=== PATIENT | female | born 1945 | race Caucasian/White ===

== ENCOUNTER 2016-08-01 11:10 | Emergency (ER) | payer MEDICARE, BC ==
[~2016-08-01] VITALS: Ht 162.6 cm; Wt 49.9 kg
--- NOTE | 2016-08-01 11:42 | PHYS DOC ---
Past Medical History Past Medical History: GERD, High Cholesterol, Hypothyroid, Migraines Additional Past Medical Histor: thyroid disease Past Surgical History: Tonsillectomy Additional Past Surgical Histo: thyroidectomy Alcohol Use: None Drug Use: None Adult General Chief Complaint Chief Complaint: OTHER COMPLAINTS [facility] HPI This patient is a pleasant 71-year-old female with a history of esophageal foreign body and esophageal stricture requiring suction dilation multiple times over the last 20 years who presents with esophageal foreign body after eating chicken and salad last night. About 9 PM patient began expressing foreign body sensation about the sternal notch and is continued to have same foreign body sensation despite trying to eat or drink to push the foreign body down. She has had some vomiting of the food she has eaten the foreign body still remains. She attempted to drink water and eventually has to spit it all back up she is not able to tolerate her saliva and she keeps spitting every 5-10 minutes. She denies any change in voice denies any problems with choking or coughing. Patient denies any fever abdominal pain chest pain shortness breath or other complaints. Her last esophageal dilation was greater than 15 years ago and she has no relationship with a GI doctor at this time. Review of Systems Review of Systems Constitutional: Denies fever or chills [] Eyes: Denies change in visual acuity, redness, or eye pain [] HENT: Denies nasal congestion or sore throat [] Respiratory: Denies cough or shortness of breath [] Cardiovascular: No additional information not addressed in HPI [] GI: Denies abdominal pain but has vomiting without nausea or diarrhea. : Denies dysuria or hematuria [] Musculoskeletal: Denies back pain or joint pain [] Integument: Denies rash or skin lesions [] Neurologic: Denies headache, focal weakness or sensory changes [] Endocrine: Denies polyuria or polydipsia [] Current Medications Current Medications Current Medications Medications (Trade) Dose Ordered Sig/Ahmet Start Time Stop Time Status Last Admin Dose Admin Glucagon (Glucagen) 1 mg 1X ONCE 08/01/16 11:45 08/01/16 11:46 DC 08/01/16 12:17 1 MG Sodium Chloride (Normal Saline Flush) 10 ml QSHIFT PRN 08/01/16 11:45 Allergies Allergies Allergies Coded Allergies Type Severity Reaction Last Updated Verified NSAIDS (Non-Steroidal Anti-Inflamma Allergy Unknown "they upset my GERD" 01/21 Yes Physical Exam Physical Exam Constitutional: Well developed, well nourished, no acute distress, non-toxic appearance. [] HENT: Normocephalic, atraumatic, bilateral external ears normal, oropharynx moist, no oral exudates, nose normal. [] Neck: Normal range of motion, no tenderness, supple, no stridor. [] Cardiovascular:Heart rate regular rhythm, no murmur [] Lungs & Thorax: Bilateral breath sounds clear to auscultation [] Abdomen: Bowel sounds normal, soft, no tenderness, no masses, no pulsatile masses. [] Skin: Warm, dry, no erythema, no rash. [] Neurologic: Alert and oriented X 3, normal voice no cough patient actually spitting up to the spittoon Psychologic: Affect normal, judgement normal, mood normal. [] Current Patient Data Vital Signs Vital Signs Date Time Temp Pulse Resp B/P (MAP) Pulse Ox O2 Delivery O2 Flow Rate FiO2 08/01/16 11:15 98.3 75 18 153/70 (97) 98 Room Air 98.3 EKG EKG [] Radiology/Procedures Radiology/Procedures IMAGING REPORT Signed PATIENT: CARLOS MANUEL DOMINGO ACCOUNT: [id number] : 1945 LOCATION: ER AGE: 71 SEX: F EXAM STATUS: PRE ER ORD. PHYSICIAN: CHUNG GONSALVES MD REASON: esophageal foreign body PROCEDURE: CHEST PA & LATERAL Indication: History of thyroidectomy. Patient has question postoperative foreign body. Time of exam 11:47 AM 2 views of the chest were obtained. There is mild right convexity thoracic scoliotic curvature. The lungs are clear. No effusion or pneumothorax is seen. No definite radiopaque foreign body is identified. Impression: No acute feature detected. DICTATED and SIGNED BY: JOHN ZAZUETA MD DATE: 08/01/16 1202 CC: CHUNG GONSALVES MD; JONATHAN ENG MD ~ [] IMAGING REPORT Signed PATIENT: CARLOS MANUEL DOMINGO ACCOUNT: [id number] : 1945 LOCATION: ER AGE: 71 SEX: F EXAM STATUS: PRE ER ORD. PHYSICIAN: CHUNG GONSALVES MD REASON: esophageal foreign body PROCEDURE: NECK SOFT TISSUE Indication: Esophageal foreign body. Time of exam 11:49 AM There are surgical clips in the neck from prior thyroidectomy. No other foreign bodies are seen. No unexpected foreign object is detected. There is cervical spondylosis noted. Prevertebral tissues are normal. Impression: No definite unexpected radiopaque foreign object is identified. DICTATED and SIGNED BY: JOHN ZAZUETA MD DATE: 08/01/16 1204 CC: CHUNG GONSALVES MD; JONATHAN ENG MD ~ Course & Med Decision Making Course & Med Decision Making Pertinent Labs and Imaging studies reviewed. (See chart for details) [] With esophageal foreign body still present likely partially obstructed secondary to continued need to spit and vomiting after eating. Patient will have chest x-ray and soft tissue lateral neck completed as well as a dose of glucagon deceiver again ate in the remove this foreign body. If not GI OB consult the patient will be referred to GI for an emergent soft foreign body removal via EGD. Patient's is stable she is mildly hypertensive on initial evaluation Discussed case with GI on-call doctor DAVIS who agreed with disposition and happy see patient and do an EGD on him later today I was asked to disposition to the GI suite for that purpose. Patient has been explained the course of action and plan we'll follow up immediately upon being discharged from this facility in EEG suite. She may have to wait several hours but he will do it later this afternoon. She is stable. It is unfortunate that glucagon did not work to help her symptoms given negative chest x-ray and soft tissue lateral films I believe patient is safe for disposition. Impression. Esophageal foreign body, secondary to esophageal strictures. Disposition: Referred to GI doctor DAVIS for endoscopy today. Dragon Disclaimer Dragon Disclaimer This electronic medical record was generated, in whole or in part, using a voice recognition dictation system. Departure Departure Referrals: JONATHAN ENG MD (PCP) CHUNG GONSALVES MD August 01, 2016 11:42
[2016-08-01] MEDS ORDERED: 0.9 % SODIUM CHLORIDE 10 ML DISP.SYRIN. IV PRN (11:45)
[2016-08-01] MEDS ORDERED: IV NORMAL SALINE 1000ML BAG 1,000 ML IV SCH (11:45)
[2016-08-01] MEDS ORDERED: GLUCAGON,HUMAN RECOMBINANT 1 MG/ML VIAL. IV ONE (11:45)
--- NOTE | 2016-08-01 12:06 | RAD ---
Indication: History of thyroidectomy. Patient has question postoperative foreign body. Time of exam 11:47 AM 2 views of the chest were obtained. There is mild right convexity thoracic scoliotic curvature. The lungs are clear. No effusion or pneumothorax is seen. No definite radiopaque foreign body is identified. Impression: No acute feature detected.
--- NOTE | 2016-08-01 12:07 | RAD ---
Indication: Esophageal foreign body. Time of exam 11:49 AM There are surgical clips in the neck from prior thyroidectomy. No other foreign bodies are seen. No unexpected foreign object is detected. There is cervical spondylosis noted. Prevertebral tissues are normal. Impression: No definite unexpected radiopaque foreign object is identified.
[2016-08-01 12:25] VITALS: BP 151/63
[2016-08-01] MEDS ORDERED: CODE1CAP19 PO (13:29)
[2016-08-01] MEDS ORDERED: LEVO25TA55 PO (13:29)
[2016-08-01] MEDS ORDERED: CHOL100013 PO (13:29)
[2016-08-01] MEDS ORDERED: PROP80CA3 PO (13:29)
== END 2016-08-01 12:48 | disposition home or self-care (01) ==
LOC: ER 11:10
DX: T18.128A Food in esophagus causing other injury, initial encounter (principal); K22.2 Esophageal obstruction; K21.9 Gastro-esophageal reflux disease without esophagitis; E78.00 Pure hypercholesterolemia, unspecified; E89.0 Postprocedural hypothyroidism; G43.909 Migraine, unspecified, not intractable, without status migrainosus; Z88.6 Allergy status to analgesic agent; X58.XXXA Exposure to other specified factors, initial encounter; Y93.89 Activity, other specified; Y92.89 Other specified places as the place of occurrence of the external cause; Y99.8 Other external cause status
CPT/HCPCS: 70360; 71020; 96361; 96374; 99284; J1610; J7030

== ENCOUNTER → 2016-08-01 | Day surgery (SDC) | payer MEDICARE, BC ==
[~2016-08-01] MED LIST: CHOL100013 PO; CODE1CAP19 PO; LEVO25TA55 PO; LIDOCAINE 2% PF Vial for OR 5 ML VIAL. ONE; PROP80CA3 PO; PROPOFOL 20 ML IV ONE
--- NOTE | 2016-08-01 13:36 | PDOC2 ---
GI CONSULT Reason For Consult: Food bolus HPI: HPI: 71 y/o female who's we have recently seen at [facility]; in fact, he was discharged yesterday. PMH is significant for esophageal stricture w/ dilation years ago. Since then has very rare issues w/ dysphagia, maybe once every 3 years, with solid foods getting stuck for ~15 minutes before passing. On this occasion was eating chicken last night around 9:00 p.m. and a piece has been stuck in her throat since then. Unable to drink or tolerate own secretions although symptoms briefly improved w/ glucagon in the ER. [place] in oropharynx. H/o dyspepsia when takes steroids; for this reason takes Pepcid of Dexilant PRN. No reflux/heartburn, abd pain, weight loss, diarrhea, constipation, hematochezia, melena. No NSAIDs. Last EGD and colonoscopy ~10 years ago, recalls both as normal. PMH: PMH: esophageal stricture w/ dilation, hypothyroidism, migraines (on propranolol, Fioricet), thyroidectomy for nodules FH: Family History: No pertinent hx (denies GI cancers) Social History: Smoke: Quit ALCOHOL: rare Drugs: None ROS: GEN: Denies fevers, chills, sweats HEENT: Denies blurred vision, sore throat CV: Denies chest pain RESP: Denies shortness of air, cough GI: Per HPI : Denies hematuria, dysuria ENDO: Denies weight changes NEURO: Denies confusion, dizziness MSK: Denies weakness, joint pain/swelling SKIN: Denies jaundice, pruritus Vitals: Vitals: Vital Signs Date Time Temp Pulse Resp B/P (MAP) Pulse Ox O2 Delivery O2 Flow Rate FiO2 08/01/16 13:23 98.1 84 20 98 98.1 Labs: Labs: - Allergies: Coded Allergies: NSAIDS (Non-Steroidal Anti-Inflamma (Verified Allergy, Intermediate, " they upset my GERD", 08/01/16) Medications: Please see EMR. Imaging: Imaging: Neck Soft Tissue Impression: No definite unexpected radiopaque foreign object is identified. CXR Impression: No acute feature detected. PE: GEN: NAD HEENT: Atraumatic, PERRL LUNGS: CTAB anteriorly HEART: RRR ABD: NABS, S/ND/NT EXTREMITY: No edema SKIN: No rashes, no jaundice NEURO/PSYCH: A & O 3 A/P: A/P: Food bolus -onset last evening while eating chicken -unable to maintain secretions H/o esophageal stricture/dilation Dyspepsia -when takes steroids, uses Pepcid or Dexilant PRN CRC screen -says colonoscopy <10 years ago -- EGD w/ disimpaction this afternoon. LION KAPADIA August 01, 2016 13:36
[2016-08-01 16:26] VITALS: BP 139/71
== END | disposition home or self-care (01) ==
LOC: SURG 12:58
PROVIDERS: ATTEND Internal Medicine Gastroenterology
DX: K22.2 Esophageal obstruction (principal); T18.128A Food in esophagus causing other injury, initial encounter
CPT/HCPCS: 43247; J2704

== ENCOUNTER → 2016-10-06 | Day surgery (SDC) | payer MEDICARE, BC ==
[~2016-10-06] MED LIST changes: +DEXL60CA2 PO; +HYDROmorphone 2 MG/ML VIAL IV PRN; +IV RINGERS,LACTATED 1000ML 1,000 ML IV SCH; +LEVO50TA5 PO; +LIDOCAINE 1% 1 ML SYRINGE. ID PRN; +MORPHINE SULFATE 2 MG/ML DISP.SYRIN. IV PRN; +ONDANSETRON PF 4 MG/2 ML VIAL. IV PRN; +PROCHLORPERAZINE 10 MG/2 ML VIAL. IV PRN; +fentaNYL PF VIAL 100 MCG/2 ML VIAL IV PRN
--- NOTE | 2016-10-06 09:54 | PDOC2 ---
CONSULT Date of Consult Date of Consult DATE: 10/06/16 TIME: 09:50 Reason for Consult Reason for Consult: dysphagia History of Present Illness Reason for Visit: 71 year old patient seen with above. She has solid food dysphagia in the substernal location. Heartburn is also noted. Dexilant is taken as needed. Risk factors for reflux are negative for alcohol, nicotine, and caffeine. Weight is stable. With the continued issues, she requests further evaluation. Past Medical History Cardiovascular: HTN Past Surgical History Past Surgical History: Tonsillectomy, Other (thyroid surgery) Family History Family History: Stroke Social History No ALCOHOL: rare Drugs: None Current Medications Current Medications Current Medications Ondansetron HCl (Zofran) 4 mg PRN Q6HRS PRN IV NAUSEA/VOMITING; Start 10/06/16 at 07:00; Stop 10/07/16 at 06:59 Fentanyl Citrate (Fentanyl 2ml Vial) 25 mcg PRN Q5MIN PRN IV MILD PAIN; Start 10/06/16 at 07:00; Stop 10/07/16 at 06:59 Fentanyl Citrate (Fentanyl 2ml Vial) 50 mcg PRN Q5MIN PRN IV MODERATE PAIN; Start 10/06/16 at 07:00; Stop 10/07/16 at 06:59 Morphine Sulfate 1 mg PRN Q10MIN PRN IV SEVERE PAIN; Start 10/06/16 at 07:00; Stop 10/07/16 at 06:59 Ringer's Solution 1,000 ml @ 30 mls/hr Q24H IV Last administered on 10/06/16t 09:09; Start 10/06/16 at 07:00; Stop 10/06/16 at 18:59 Lidocaine HCl 2 ml PRN 1X PRN ID PRIOR TO IV START; Start 10/06/16 at 07:00; Stop 10/07/16 at 06:59 Hydromorphone HCl (Dilaudid) 0.5 mg PRN Q10MIN PRN IV SEV PAIN, Second choice; Start 10/06/16 at 07:00; Stop 10/07/16 at 06:59 Prochlorperazine Edisylate (Compazine) 5 mg PACU PRN PRN IV NAUSEA, MRX1; Start 10/06/16 at 07:00; Stop 10/07/16 at 06:59 Propofol 20 ml @ As Directed STK-MED ONCE IV ; Start 10/06/16 at 09:43; Stop at 09:44; Status DC Lidocaine HCl (Lidocaine Pf 2% Vial) 5 ml STK-MED ONCE .ROUTE ; Start 10/06/16 at 09:43; Stop 10/06/16 at 09:44; Status DC Active Scripts Active Reported Dexilant (Dexlansoprazole) 60 Mg [place].mp 60 Mg PO PRN PRN Levothyroxine Sodium 50 Mcg Tablet 50 Mcg PO DAILYAC Vitamin D (Cholecalciferol (Vitamin D3)) 1,000 Unit Capsule 1 Cap PO DAILY Fiorinal With Codeine #3 Cap (Codeine/Butalbital/Asa/Caffein) 1 Each Capsule 1 Each PO DAILY08 Propranolol Hcl 80 Mg Cap.sa.24h 1 Cap PO HS Allergies Allergies: Coded Allergies: NSAIDS (Non-Steroidal Anti-Inflamma (Verified Allergy, Intermediate, " they upset my GERD", 10/06/16) Physical Exam General: Alert, Oriented X3 HEENT: Atraumatic Lungs: Clear to auscultation Heart: Regular rate, Normal S1, Normal S2 Abdomen: Normal bowel sounds, Soft, No tenderness Vitals VITALS Vital Signs Date Time Temp Pulse Resp B/P (MAP) Pulse Ox O2 Delivery O2 Flow Rate FiO2 10/06/16 08:54 97.4 64 20 92 97.4 Assessment/Plan Assessment/Plan 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 Differential includes: peptic stricture, Queen's, malignancy, and/or achalasia. R/b discussed with patient who is willing to proceed wtih egd and possible dilation. RIYA CANNON MD Oct 06, 2016 09:54
[2016-10-06 10:29] VITALS: BP 154/64
== END | disposition home or self-care (01) ==
LOC: ENDOS 08:23
PROVIDERS: ATTEND Internal Medicine Gastroenterology
DX: K22.2 Esophageal obstruction (principal); K29.70 Gastritis, unspecified, without bleeding; F17.200 Nicotine dependence, unspecified, uncomplicated; E78.00 Pure hypercholesterolemia, unspecified; I10 Essential (primary) hypertension; E03.9 Hypothyroidism, unspecified; Z86.39 Personal history of other endocrine, nutritional and metabolic disease; Z88.8 Allergy status to other drugs, medicaments and biological substances
CPT/HCPCS: 43235; 43450; J2001; J2704

== ENCOUNTER → 2018-04-24 | Day surgery (SDC) | payer MEDICARE, BC ==
[~2018-04-24] MED LIST changes: +DILT180C2 PO; +DULO30CA2 PO; +FAMO20TA5 PO; +LEVO25TA4 PO; -LIDOCAINE 1% 1 ML SYRINGE. ID PRN; +LIDOCAINE 1% PF 2 ML VIAL. ID PRN; -LIDOCAINE 2% PF Vial for OR 5 ML VIAL. ONE; -MORPHINE SULFATE 2 MG/ML DISP.SYRIN. IV PRN; +MORPHINE SULFATE 4 MG/ML VIAL. IV PRN; +POTA10TA6 PO; -PROPOFOL 20 ML IV ONE; +PROPOFOL 40 ML IV ONE
[2018-04-24 08:39] VITALS: BP 138/63
--- NOTE | 2018-04-25 17:11 | PATHOLOGY ---
[facility] Accession Number: [id number] . 01 Material submitted: . GASTRIC ULCER BIOPSY . 01 Clinical history: . Anemia . 02 Diagnosis: Gastric biopsies, gastric ulcer: - Consistent with mild reactive gastropathy. . (JPM:mml; 04/25/2018) [facility]/04/25/2018 . 02 Comment: Sections of the gastric ulcer biopsy reveal segments of gastric antral mucosa showing focal congestion, mild edema of lamina propria, focal mild foveolar hyperplasia, and focal mild chronic inflammation. A properly-controlled immunoperoxidase stain for Helicobacter is negative for Helicobacter organisms. The findings are consistent with a mild reactive gastropathy. There is no evidence of malignancy. . Special stain: Immunoperoxidase stain for Helicobacter. . (JPM:mml; 04/25/2018) . 02 Electronically signed: . Gonsalo Mancilla MD, Pathologist NPI- [id number] . 01 Gross description: . Received in formalin labeled "Cecy Schaefer, gastric ulcer BX," are 3 segments of serrano soft tissue measuring 0.4 x 0.4 x 0.1 cm in aggregate dimensions and ranging from 0.2 to 0.3 cm in maximum dimension. The specimen is submitted entirely in cassette A1. (TSD; 04/24/2018) TOB/TOB . 02 Pathologist provided ICD-10: K31.9 . 02 CPT . 663458, G99383 Specimen Comment: A courtesy copy of this report has been sent to Specimen Comment: [phone], . Specimen Comment: Report sent to / DR ENG Specimen Comment: A duplicate report has been generated due to demographic updates. Performed at: [address] [address] [facility] [address], [place], [place] [id number] MD Jsoe Rafael Galo MD Phone: [phone] Performed at: [address] [id number] MD Gonsalo Mancilla MD Phone: [phone]
== END | disposition home or self-care (01) ==
LOC: ENDOS 06:47
PROVIDERS: ATTEND Internal Medicine Gastroenterology
DX: K57.30 Diverticulosis of large intestine without perforation or abscess without bleeding (principal); K64.0 First degree hemorrhoids; K25.9 Gastric ulcer, unspecified as acute or chronic, without hemorrhage or perforation; D50.0 Iron deficiency anemia secondary to blood loss (chronic); I10 Essential (primary) hypertension; E78.5 Hyperlipidemia, unspecified; E03.9 Hypothyroidism, unspecified; K21.9 Gastro-esophageal reflux disease without esophagitis; Z82.3 Family history of stroke; Z82.49 Family history of ischemic heart disease and other diseases of the circulatory system; Z83.3 Family history of diabetes mellitus; Z87.891 Personal history of nicotine dependence; Z79.899 Other long term (current) drug therapy; Z98.890 Other specified postprocedural states; Z88.8 Allergy status to other drugs, medicaments and biological substances
CPT/HCPCS: 43239; 45378; 88305; 88342; J2704

== ENCOUNTER → 2018-06-26 | Day surgery (SDC) | payer MEDICARE, BC ==
[~2018-06-26] MED LIST changes: +IBUP200T58 PO; +LIDOCAINE 2% PF 5 ML VIAL. ONE; +MORPHINE SULFATE 2 MG/ML VIAL. IV PRN; -MORPHINE SULFATE 4 MG/ML VIAL. IV PRN; +PROPOFOL 20 ML IV ONE; -PROPOFOL 40 ML IV ONE
[2018-06-26 09:26] VITALS: BP 181/87
== END | disposition home or self-care (01) ==
LOC: SURG 07:51
PROVIDERS: ATTEND Internal Medicine Gastroenterology
DX: K22.2 Esophageal obstruction (principal); K29.50 Unspecified chronic gastritis without bleeding; E78.5 Hyperlipidemia, unspecified; I10 Essential (primary) hypertension; K21.9 Gastro-esophageal reflux disease without esophagitis; E05.90 Thyrotoxicosis, unspecified without thyrotoxic crisis or storm; D64.9 Anemia, unspecified; Z82.3 Family history of stroke; Z83.3 Family history of diabetes mellitus; Z82.49 Family history of ischemic heart disease and other diseases of the circulatory system; Z87.891 Personal history of nicotine dependence; Z79.899 Other long term (current) drug therapy; Z98.890 Other specified postprocedural states
CPT/HCPCS: 43235; 43450; J2001; J2704

== ENCOUNTER → 2018-11-21 | Outpatient (CLI) | payer MEDICARE, BC ==
[2018-06-26 09:26] VITALS: BP 181/87
[~2018-11-21] MED LIST changes: -HYDROmorphone 2 MG/ML VIAL IV PRN; -IV RINGERS,LACTATED 1000ML 1,000 ML IV SCH; -LIDOCAINE 1% PF 2 ML VIAL. ID PRN; -LIDOCAINE 2% PF 5 ML VIAL. ONE; -MORPHINE SULFATE 2 MG/ML VIAL. IV PRN; -ONDANSETRON PF 4 MG/2 ML VIAL. IV PRN; -PROCHLORPERAZINE 10 MG/2 ML VIAL. IV PRN; -PROPOFOL 20 ML IV ONE; -fentaNYL PF VIAL 100 MCG/2 ML VIAL IV PRN
--- NOTE | 2018-11-21 16:20 | KCIC ---
THORACIC SPINE 3V, LUMBAR SPINE 2-3V 11/21/2018 12:00 AM Indication: Low back pain. Thoracic pain for 2 to 3 weeks COMPARISON: None available TECHNIQUE: 3 views of the lumbar spine are provided. 3 views of the thoracic spine are provided. Findings: There is S-shaped scoliosis of the thoracolumbar spine with apex dextroconvex curvature at T9-T10 and apex levocurvature at L2-L3. There is no acute fracture identified. There is rotoscoliosis of the lumbar spine. Advanced disc height loss at L3-L4 asymmetric to the right and L4-L5 asymmetric to the left. I degenerative changes with endplate remodeling is noted at L3-L4 and L4-L5. Mild disc height loss noted at L1-L2 and L2-L3. Osseous neural foraminal stenosis is identified at L3-L4 and L4-L5. Nonobstructive bowel gas pattern. Visualized portions of the sacrum appear intact. Impression: S-shaped rotoscoliosis of the thoracolumbar spine with associated moderate to advanced degenerative changes of the lumbar spine. Electronically signed by: Carolina Ortiz MD (11/21/2018 4:17 PM) [id number]
--- NOTE | 2018-11-21 16:25 | KCIC ---
Examination: 2 views of the left hip HISTORY: History of left hip pain COMPARISON: None available FINDINGS: Left femoral head is within the acetabula. Moderate joint space loss identified in the left joint likely degenerative changes. IMPRESSION: Moderate degenerative changes left hip joint. Electronically signed by: Micha Lei MD (11/21/2018 4:22 PM) [place] [id number]
== END | disposition home or self-care (01) ==
LOC: KCIC 15:06
PROVIDERS: ATTEND Family Medicine
DX: M25.552 Pain in left hip (principal); M41.85 Other forms of scoliosis, thoracolumbar region; M16.12 Unilateral primary osteoarthritis, left hip; M48.061 Spinal stenosis, lumbar region without neurogenic claudication; M79.605 Pain in left leg; M54.10 Radiculopathy, site unspecified; M54.5 Low back pain
CPT/HCPCS: 72072; 72100; 73502

== ENCOUNTER → 2018-12-20 | Outpatient (CLI) | payer MEDICARE, BC ==
[2018-06-26 09:26] VITALS: BP 181/87
[~2018-12-20] MED LIST changes: +DILT60TA3 PO; +TRAM50TA PO
--- NOTE | 2018-12-20 15:22 | KCIC ---
MRI Lumbar Spine without contrast History: Radicular low back pain into the hips and legs Technique: Multiplanar, multi sequential noncontrast MR imaging was performed of the lumbar spine. Comparison: None Findings: Lumbar vertebral body stature is maintained. There is moderate to severe levoscoliosis with rotary component, centered near L3. There is mild left lateral subluxation L3 relative to L4 and L4 relative to L5, mild right lateral subluxation of L1 relative to L2. There is very minimal posterior subluxation L2 relative to L3 and L3 relative to L4. There is variable advanced degenerative disc disease L1-L2 through L4-5 and to a somewhat lesser degree at L5-S1. Conus terminates near T12-L1. There is trace variable endplate edema at L1-2 and L5-S1 likely reactive/degenerative in etiology. T10-11: Small cystic focus in the left neural foramen is most likely a nerve root sleeve cyst. Spinal canal and neural foramina are adequate. T11-12: There is mild buckling of the ligamentum flavum. Spinal canal and neural foramina are adequate. T12-L1: Spinal canal and neural foramina are adequate. L1-L2: There is bulge/broad protrusion more eccentric to the right lateral recess about 3 mm AP, mild indentation upon the ventral thecal sac in the right lateral recess with minimal narrowing of the far right lateral recess. Left neural foramen is adequate. There is moderate narrowing of the right neural foramen from posteriorly by facet. L2-L3: There is minimal disc osteophyte complex. Spinal canal is adequate. Neural foramina are adequate. Facet degenerative change and disc osteophyte complex contributes to moderate narrowing of the right neural foramen. L3-L4: There is disc osteophyte complex slightly indenting the ventral thecal sac. There is some deformity of the thecal sac due to the scoliotic curvature. There is mild bilateral facet degenerative change greater on the left. Left neural foramen is adequate. There is [id number] narrowing of the right neural foramen. There is mild narrowing of the far right lateral recess at the intervertebral disc space level, greater degree of mild to moderate narrowing of the left lateral recess disc below the intervertebral disc space level. L4-L5: There is [id number] buckling of the ligamentum flavum and mild facet hypertrophic change. There is minimal disc osteophyte complex greater left lateral recess. There is moderate narrowing of the left lateral recess with contact of the descending left L5 nerve root. There is moderate to severe narrowing of the left neural foramen by facet and disc osteophyte complex. Right neural foramen is adequate. L5-S1: There is moderate to severe buckling of the ligamentum flavum. There is moderate left facet hypertrophic change, minimally on the right. There is mild to moderate narrowing of the far left lateral recess from posteriorly. There is moderate to severe narrowing of the left neural foramen by disc osteophyte complex and facet, contact of exiting left L5 nerve root. Right neural foramen is adequate. Impression: 1. There is moderate to severe lumbar levoscoliosis with rotary component. There is variable lateral recess stenosis as described greatest on the left at L4-5 and L5-S1 and below the L3-4 intervertebral disc space, lesser degree of mild narrowing of the right lateral recess stenosis at L3-L4, L2-3, L1-2. 2. There is multilevel lumbar facet degenerative change. There is mild abnormal alignment as stated. 3. There is multilevel variable fairly advanced degenerative disc disease greatest L1-L2 through L4-5, variable mild endplate edema likely reactive/degenerative in etiology. 4. There is lumbar neural foramina compromise greatest on the left L5-S1 and L4-5, to lesser degree on the right at L1-2 through L3-4. Electronically signed by: Paul Palma MD (12/20/2018 3:19 PM) [id number]
== END | disposition home or self-care (01) ==
LOC: KCIC MRI 13:25
PROVIDERS: ATTEND Family Medicine
DX: M48.061 Spinal stenosis, lumbar region without neurogenic claudication (principal); M51.37 Other intervertebral disc degeneration, lumbosacral region; M25.78 Osteophyte, vertebrae; M54.16 Radiculopathy, lumbar region
CPT/HCPCS: 72148

== ENCOUNTER → 2019-01-13 | Outpatient (CLI) | payer MEDICARE, BC ==
[2018-06-26 09:26] VITALS: BP 181/87
[~2019-01-13] MED LIST changes: +IOHEXOL 180 MG/ML 10 ML VIAL. ONE; +methylPREDNISolone ACETATE 40 MG/ML VIAL. ONE; +methylPREDNISolone ACETATE 80 MG/ML VIAL. ONE
--- NOTE | 2019-01-14 00:10 | PAIN ---
DATE OF SERVICE: 01/13/2019 INITIAL CONSULTATION FOR PAIN CLINIC CHIEF COMPLAINT: Low back and left lower extremity pain. HISTORY OF PRESENT ILLNESS: This is a 73-year-old female, who presents with history of pain in the low back, left lower extremity for a long time about 20 years, worse over the past year, she slipped on some ice last winter, exacerbated the pain, just general wear and tear with daily activities of increasing pain in the low back, posterior gluteus, lateral anterior thigh, anterior medial thigh, medial lower leg. Described as throbbing, shooting, radiating, intermittent in intensity with burning quality, worse with walking, standing, getting up from a seated position. The patient reports it awakens her from sleep about once to 3 times a night, does not affect her bowel or bladder control, but does affect her ability to walk. She is not using any assistive devices; however, the patient did have physical therapy, also does exercise currently and feels that this does help to a moderate extent. The patient is taking duloxetine, diltiazem, levothyroxine, tramadol. Tramadol does decrease the pain, but not for extended period of time, duloxetine and diltiazem has not helped much in the meantime as well. The patient did have an MRI scan of the lumbar spine showing [id number] levoscoliosis with variable lateral recess stenosis, greater on the left at L4-L5 and L5-S1 and minimally at L3-L4 intervertebral disk space. The patient rates her disability rating from 0-10, 10 being the worst, is at 9 with family home responsibilities, social activity, 8 with recreation and occupation, 9 with social activity, 4 with self-care and 2 with life support activities. The patient reports no overt loss of motor function, but significant fatigability of the left lower extremity with activity, especially walking. PAST MEDICAL HISTORY: Significant for previous stroke, gastroesophageal reflux, irritable bowel syndrome, migraine headaches, depression, arthritis, osteoporosis. PREVIOUS SURGERY: Include tonsillectomy, thyroidectomy and right shoulder surgery. CURRENT MEDICATIONS: Include duloxetine, diltiazem, tramadol, levothyroxine. ALLERGIES: The patient has no known drug allergies. FAMILY HISTORY: Significant for diabetes in the patient's father. SOCIAL HISTORY: The patient does not drink alcohol, does not smoke, does not use any illegal, illicit or recreational drugs. She is , has no children, living at home and lives locally in [place], [place]. REVIEW OF SYSTEMS: The patient's review of systems is positive for those items mentioned in history of present illness. All systems reviewed and otherwise negative. It is complete, full and well documented on the patient's chart. PHYSICAL EXAMINATION: VITAL SIGNS: The patient's blood pressure is 150/83, pulse 80, respirations 16, temperature 97.5 degrees Fahrenheit, height is 5 feet 4 inches, weight is 106 pounds. GENERAL: The patient is awake, alert, oriented, appropriate, very pleasant demeanor. HEENT: Head shows normocephalic, atraumatic. Extraocular movements are intact and symmetrical. Oral cavity: Mucous membranes moist and pink. Dentition is intact. NECK: Shows anterior throat supple without palpable lymphadenopathy noted. Swallow reflex symmetrical. CHEST: Shows normal on inspection. Breath sounds clear to auscultation bilaterally. HEART: Shows S1, S2 clear. No murmurs auscultated. ABDOMEN: Soft, nontender, nondistended. No palpable organomegaly is noted. No rebound or guarding demonstrated. BACK: Shows spine grossly in the midline. Normal appearing thoracic kyphosis and lumbar lordotic curvature. Lumbar paraspinous muscle shows symmetrical on inspection, with palpation shows some moderate tenderness diffusely bilaterally without radiation. The patient has good rotational motion of lumbar spine, both laterally as well as extension and flexion without difficulty. The patient shows no tenderness over the spinous processes, sacrum or sacroiliac regions with palpation. EXTREMITIES: The patient's lower extremities show deep tendon reflexes at 2+ in the patellar, 1+ tendo-calcaneus tendons. Motor exam is strong with 5/5 dorsiflexion, extension, quadriceps and hamstring flexion. Peripheral pulses are 1+ posterior tibia. No peripheral edema is noted. Lower extremities are warm and dry to touch, equal in color and appearance. Straight leg raise noted to be negative for reproduction of radicular symptoms bilaterally as is Gaenslen's and Pedro's maneuvers are negative bilaterally. The patient is able to stand, stand on her toes without difficulty or loss of balance, walks with a normal appearing gait, does not appear to favor the right or left lower extremity significantly on a short distance walking today. SKIN: The patient's skin shows warm and dry, good turgor. No edema. No sores, rashes or bruising. IMPRESSION: 1. This is a 73-year-old female with a long history of low back pain, worse over the past year or so with radicular pain in the left lower extremity. 2. MRI scan of lumbar spine as noted. 3. Arthritis. 4. Previous stroke. PLAN: Options were discussed with the patient including conservative medical management, physical therapy, interventional techniques and she would like to pursue interventional techniques. We discussed a lumbar epidural steroid injection using description as well as anatomical models to describe the procedure. Risks were then discussed including, but not limited to bleeding, infection, possibility of epidural hematoma, subsequent neurologic compromise, dural puncture, headaches, spinal cord and/or nerve damage, side effects of steroid medication and poor results regarding pain control. The patient understands and wished to proceed. The patient will return to clinic in approximately 2 weeks for followup. She was counseled on return appointment, activity level and side effects to be aware of. DIAGNOSES: Lumbar radiculopathy with lumbar degenerative disk disease and lumbar spinal stenosis. PROCEDURE: Lumbar epidural steroid injection, translaminar approach at L4-L5 level using C-arm fluoroscopic guidance under sterile prep and drape using local anesthetic. MEDICATION INJECTED: The patient received a total of 120 mg Depo-Medrol plus 10 mL of preservative-free normal saline and 2 mL of contrast. CONDITION AT DISCHARGE: Stable. The patient tolerated the procedure well, had no complications. ISA PETTIT MD DR: BALWINDER/rossana JOB#: [id number] / [id number] JONATHAN Boogie MD
== END ==
LOC: PNCL 09:18
PROVIDERS: ATTEND Anesthesiology
DX: M51.16 Intervertebral disc disorders with radiculopathy, lumbar region (principal); K21.9 Gastro-esophageal reflux disease without esophagitis; K58.9 Irritable bowel syndrome, unspecified; G43.909 Migraine, unspecified, not intractable, without status migrainosus; F32.9 Major depressive disorder, single episode, unspecified; E89.0 Postprocedural hypothyroidism; Z86.73 Personal history of transient ischemic attack (TIA), and cerebral infarction without residual deficits; Z87.39 Personal history of other diseases of the musculoskeletal system and connective tissue; Z98.890 Other specified postprocedural states
CPT/HCPCS: 62323; J1030; J1040; Q9965

== ENCOUNTER → 2019-01-27 | Outpatient (CLI) | payer MEDICARE, BC ==
[2018-06-26 09:26] VITALS: BP 181/87
--- NOTE | 2019-01-27 10:07 | PAIN ---
DATE OF SERVICE: 01/27/2019 PROGRESS NOTE FOR PAIN CLINIC DIAGNOSES: Lumbar radiculopathy with lumbar degenerative disk disease and lumbar spinal stenosis. HISTORY OF PRESENT ILLNESS: The patient is a 73-year-old female who returns for followup status post lumbar epidural steroid injection x 1. The patient reports about 80% improvement at first and is now down to about 40% improvement overall in the low back and left lower extremity. The patient reports still significant pain in posterior gluteus, posterior thigh and posterior calf. The patient reports it is 8 on a scale of 10 at its worst over the past week, 2 on average, 2 at its least and is 2 today, worse with activity, standing, walking, but initially she was increasing her activity, doing things she would normally not have done because the pain would have limited her such as extended walking, changing positions, doing household activities, work activities. The patient reports it is still worse with standing or walking, better with sitting or lying down, does not awaken her from sleep at night. The patient reports it is aching, burning and radiating in the left lower extremity as described as well as the low back. No new motor or sensory deficits, no new bowel or bladder incontinence or other complaints. PHYSICAL EXAMINATION: VITAL SIGNS: The patient's blood pressure 146/70, pulse 80, respirations 16, temperature 98.1 degrees Fahrenheit, height is 5 feet 4 inches, weight is 103 pounds. GENERAL: The patient is awake, alert, oriented, appropriate, very pleasant demeanor. HEENT: Shows normocephalic, atraumatic. Extraocular movements are intact and symmetrical. Oral cavity: Mucous membranes moist and pink. Dentition is intact. NECK: Shows anterior throat is supple without palpable lymphadenopathy noted. Swallow reflex symmetrical. CHEST: Shows normal on inspection. Breath sounds are clear bilaterally. HEART: Shows S1, S2 clear. No murmurs auscultated. ABDOMEN: Soft, nontender, nondistended. No palpable organomegaly is noted. No rebound or guarding demonstrated. BACK: Shows spine grossly in the midline. Normal appearing thoracic kyphosis and lumbar lordotic curvature. Lumbar paraspinous muscle shows symmetrical on inspection, on palpation shows some moderate tenderness diffusely, but only diffusely without significant radiation. EXTREMITIES: The patient's lower extremities show deep tendon reflexes, 2+ in the patellar, 1+ tendo-calcaneus tendons. Motor exam is strong with 5/5 dorsiflexion, extension, quadriceps and hamstring flexion symmetrical. Peripheral pulses are 1+ posterior tibial and no peripheral edema is noted. Options were discussed with the patient. The patient's old chart was reviewed as her current medication regimen updated. Current review of systems updated today as well. We will proceed with a second in a series of lumbar epidural steroid injection today with fluoroscopic guidance. Risks were again discussed including, but not limited to bleeding, infection, possibility of epidural hematoma, subsequent neurological compromise, dural puncture, headaches, spinal cord and/or nerve damage, side effects of steroid medication and poor results regarding pain control. The patient understands and wished to proceed. The patient will return to clinic in approximately 2 weeks for followup. She was counseled as to return appointment, activity level and side effects to be aware of. DIAGNOSES: Lumbar radiculopathy with lumbar degenerative disk disease and lumbar spinal stenosis. PROCEDURE: Lumbar epidural steroid injection, translaminar approach at L5-S1 level using C-arm fluoroscopic guidance under sterile prep and drape using local anesthetic. MEDICATION INJECTED: A total of 120 mg of Depo-Medrol plus 10 mL of preservative-free normal saline and 2 mL of contrast. CONDITION AT DISCHARGE: Stable. The patient tolerated the procedure well, had no complications. ISA PETTIT MD DR: BALWINDER/rossana JOB#: [id number] / [id number]
== END ==
LOC: PNCL 08:47
PROVIDERS: ATTEND Anesthesiology
DX: M51.16 Intervertebral disc disorders with radiculopathy, lumbar region (principal); M48.061 Spinal stenosis, lumbar region without neurogenic claudication
CPT/HCPCS: 62323; J1030; J1040; Q9965

== ENCOUNTER → 2019-02-12 | Outpatient (CLI) | payer MEDICARE, BC ==
[2018-06-26 09:26] VITALS: BP 181/87
[~2019-02-12] MED LIST changes: +BUPIVACAINE MPF 0.25% 10 ML VIAL. ONE; -methylPREDNISolone ACETATE 40 MG/ML VIAL. ONE
--- NOTE | 2019-02-12 11:58 | PAIN ---
DATE OF SERVICE: 02/12/2019 PROGRESS NOTE FOR PAIN CLINIC DIAGNOSES: 1. Lumbar radiculopathy with lumbar degenerative disk disease and lumbar spinal stenosis. 2. Left shoulder joint pain with primary osteoarthritis. HISTORY OF PRESENT ILLNESS: The patient is a 74-year-old female who returns for followup status post lumbar epidural steroid injections x 2. The patient reports about 80% improvement in the low back and left lower extremity. The patient reports occasional pain radiating to posterior gluteus and thigh, but very rare. The patient reports she is doing very well, reports the pain is 8 on a scale of 10 at its worst over the past week, 4 on average, 1 at its least and because of her left shoulder she is having significant pain. She tried Medrol Navjot, which did not help the pain significantly from her primary physician. The patient reports the pain in the shoulder is now burning, stabbing, sharp, dull, shooting at times into the arm, in the biceps and into the forearm, worse with weightbearing, range of motion, reaching overhead, any repetitive motions or bearing weight with the left arm and shoulder. The patient has good mobility, but significant pain with the shoulder use. The patient reports it awakens her from sleep occasionally, but she can generally sleep on the right side and does not bother. Her back is doing much better though, increasing her activity, distance walking, doing household activities, work activities, traveling with greater ease and comfort as well. PHYSICAL EXAMINATION: VITAL SIGNS: The patient's blood pressure 146/74, pulse 78, respirations 18, temperature 97.9 degrees Fahrenheit, height is 5 feet 4 inches, weight is 106 pounds. GENERAL: The patient is awake, alert, oriented, appropriate, very pleasant demeanor. HEENT: Shows normocephalic, atraumatic. Extraocular movements are intact and symmetrical. Oral cavity: Mucous membranes moist and pink. Dentition is intact. NECK: Shows anterior throat supple without palpable lymphadenopathy noted. Swallow reflex symmetrical. CHEST: Shows normal on inspection. Breath sounds clear to auscultation bilaterally. HEART: Shows S1, S2 clear. No murmurs auscultated. ABDOMEN: Soft, nontender, nondistended. BACK: Shows spine grossly in the midline. Normal appearing thoracic kyphosis, cervical lordotic curvature and lumbar lordotic curvature. Lumbar paraspinous muscle shows symmetrical on inspection, with palpation shows some moderate tenderness diffusely bilaterally, but only diffusely without radiation. The patient has good rotational motion of lumbar spine without significant difficulty. EXTREMITIES: The patient's lower extremities show deep tendon reflexes at 2+ in the patella, 1+ tendo-calcaneus tendons. Motor exam is strong with 5/5 dorsiflexion and extension. Upper extremities show deep tendon reflexes 2+ in the biceps and triceps tendons. Motor exam is strong with training analyst strength rated as 5/5, left. Bicep and tricep flexion is approximately 4/5 with pain noted with biceps flexion and triceps extension on the left shoulder. Right side is 5/5 and nontender. Examination of the patient's shoulder shows no tenderness over the acromioclavicular joint. Good range of motion, but significant tenderness with abduction past about 60 degrees with resistance, but no loss of strength. No palpable masses, no abnormalities with palpation anterolateral or posterior deltoid musculature. Options were discussed with the patient. The patient's old chart was reviewed as her current medication regimen updated. Current review of systems updated today as well. We will proceed with a left intra-articular shoulder joint injection as the patient has osteoarthritis documented in the left shoulder with significant pain with range of motion and weightbearing. Risks were again discussed including, but not limited to bleeding, infection, possibility of intravascular injection sequelae, spread of local anesthetic and numbness, side effects of steroid medication, exposure to fluoroscopy and poor results regarding pain control. The patient understands and wished to proceed. The patient will return to clinic in approximately 2 weeks for followup. She was counseled as to return appointment, activity level and side effects to be aware of. DIAGNOSIS: Left shoulder joint pain with primary osteoarthritis, left shoulder joint. PROCEDURE: Left intra-articular shoulder joint injection glenohumeral injection using C-arm fluoroscopic guidance under sterile prep and drape using local anesthetic. MEDICATION INJECTED: A total of 2 mL of 0.25% bupivacaine as well as 80 mg Depo-Medrol and 1.5 mL of contrast. CONDITION AT DISCHARGE: Stable. The patient tolerated the procedure well, had no complications. ISA PETTIT MD DR: BALWINDER/rossana JOB#: [id number] / [id number]
== END ==
LOC: PNCL 08:53
PROVIDERS: ATTEND Anesthesiology
DX: M19.012 Primary osteoarthritis, left shoulder (principal); M51.16 Intervertebral disc disorders with radiculopathy, lumbar region
CPT/HCPCS: 20610; 77002; J1040; J3490; Q9965

== ENCOUNTER → 2019-03-13 | Outpatient (CLI) | payer MEDICARE, BC ==
[2018-06-26 09:26] VITALS: BP 181/87
[~2019-03-13] MED LIST changes: -BUPIVACAINE MPF 0.25% 10 ML VIAL. ONE; -IOHEXOL 180 MG/ML 10 ML VIAL. ONE; -methylPREDNISolone ACETATE 80 MG/ML VIAL. ONE
--- NOTE | 2019-03-13 16:10 | KCIC ---
STUDY: MRI of the left shoulder without contrast INDICATION: Worsening left shoulder pain. Limited range of motion. COMPARISON: None. TECHNIQUE: Multiplanar MR imaging of the left shoulder performed without the use of intravenous or intra-articular contrast. FINDINGS: AC joint: Mild arthrosis. Large amount of fluid within the subacromial subdeltoid bursa with findings of bursitis. Rotator cuff: Full-thickness tear of the supraspinatus extending from the leading edge to its posterior aspect collectively over an AP dimension of approximately 1.5 cm as seen on image 7 series 5. The location of the torn tendon fibers are difficult to discern given the degree of edema around the shoulder. The more posterior aspect of the supraspinatus that remains attached at the footprint is thinned in keeping with partial undersurface tearing. Tendinosis of the infraspinatus which remains intact. The teres minor is intact. Essentially fully torn/macerated subscapularis. Edema tracking medially along the subscapularis and supraspinatus muscle bellies more so than the infraspinatus. Despite the subscapularis and supraspinatus tears, no severe fatty rotator cuff muscle infiltration. Labrum: Multifocal labral degeneration/tearing. Long head biceps tendon: Completely torn and retracted into the bicipital groove. Cartilage: Multifocal chondral loss throughout the humeral head as well as localized to the upper aspect of the glenoid. Bones: Heterogeneous marrow signal particularly at the humeral head where there is relatively confluent marrow edema superiorly. Centered within this confluent edema is a thin linear hypointense band along the subchondral bone plate such as seen on image 10 series 6. Scattered humeral head cystic changes. Degenerative marrow edema at the superior aspect glenoid. Miscellaneous: Very large shoulder joint effusion with synovitis. Joint fluid extends outside of the joint space anteriorly via a capsular defect as well as tearing of the subscapularis such as seen on image 14 series 3. Pericapsular edema about the shoulder as well as edema within the deltoid and overlying subcutaneous tissues. Impression: 1. Essentially completely torn and macerated subscapularis tendon. Full-thickness tear of the supraspinatus extending from the leading edge posteriorly over an AP dimension of approximately 1.5 cm. 2. Fully torn and retracted long head biceps tendon. Multifocal humeral head and glenoid chondral loss. 3. Heterogeneous marrow signal most notable along the proximal humerus with confluent edema at the superior humeral head. Within this confluent edema is a thin band of low signal along the subchondral bone plate. This could represent a subchondral impaction fracture if there has been trauma or potentially an insufficiency fracture. A manifestation of osteonecrosis is a consideration if there are risk factors for this condition. 4. Very large shoulder joint effusion with synovitis as well as extensive fluid distention of the subacromial subdeltoid bursa. The effusion extravasates outside of the joint space via a capsular defect anteriorly and through the torn subscapularis. Pericapsular, muscular and subcutaneous edema seen about the joint as well. The volume of fluid is more than typically seen in either degenerative or traumatic conditions which raises the question of an infectious or inflammatory process. Recommend correlation with patient history, physical exam findings and laboratory analysis and consider joint aspiration based on the clinical scenario. Electronically signed by: LELO WHITTAKER MD (03/13/2019 4:07 PM) [id number]
== END | disposition home or self-care (01) ==
LOC: KCIC MRI 11:19
PROVIDERS: ATTEND Orthopaedic Surgery Sports Medicine
DX: M75.102 Unspecified rotator cuff tear or rupture of left shoulder, not specified as traumatic (principal); M79.89 Other specified soft tissue disorders; M25.412 Effusion, left shoulder; M75.52 Bursitis of left shoulder; Z90.89 Acquired absence of other organs
CPT/HCPCS: 73221

== ENCOUNTER 2019-04-07 07:44 | Day surgery (SDC) | payer MEDICARE, BC ==
[~2019-04-07] VITALS: Ht 162.6 cm; Wt 48.1 kg
[2019-04-07] MEDS ORDERED: ROCURONIUM 50 MG/5 ML VIAL. ONE (08:45)
[2019-04-07] MEDS ORDERED: IV RINGERS,LACTATED 1000ML 1,000 ML IV SCH (08:45)
[2019-04-07] MEDS ORDERED: GLYCOPYRROLATE 1 MG/5 ML VIAL. ONE (08:45)
[2019-04-07] MEDS ORDERED: fentaNYL PF VIAL 100 MCG/2 ML VIAL ONE (08:46)
[2019-04-07] MEDS ORDERED: LIDOCAINE 2% PF 5 ML VIAL. ONE (08:46)
[2019-04-07] MEDS ORDERED: NEOSTIGMINE METHYLSULFATE 5 MG/5 ML SYRINGE. ONE (08:46)
[2019-04-07] MEDS ORDERED: DEXAMETHASONE SOD PHOS 4 MG/ML VIAL ONE ×2 (08:46→10:15)
[2019-04-07] MEDS ORDERED: ONDANSETRON PF 4 MG/2 ML VIAL. ONE (08:46)
[2019-04-07] MEDS ORDERED: PROPOFOL 20 ML IV ONE (08:46)
[2019-04-07] MEDS ORDERED: MIDAZOLAM HCL/PF 2 MG/2 ML VIAL. ONE ×2 (08:55→09:16)
[2019-04-07] MEDS ORDERED: EPINEPHrine VIAL 30 MG/30 ML VIAL ONE (10:06)
--- NOTE | 2019-04-07 10:06 | DISCH ---
DISCHARGE INSTRUCTIONS Condition on Discharge Condition on Discharge: Stable Activity After Discharge Activity Instructions for Disc: Other, see below Other activity instructions: arm to remain in sling Bathing Instructions: Shower-keep dressing dry Driving Instructions after Dis: Do not drive Weight Bearing Status after Di: Non weight bearing Diet after Discharge Diet after Discharge: Regular Wound Incision Care Wound/Incision Care: Ice to area for comfort, Keep wound/cast CDI, Change dressing Other wound/incision instructi: ok to change dressing after [address] after DC Call your doctor for: Concerns you may have Follow-Up Follow up with: Shweta in 2 wks DESTINI ROBERTS II, MD Apr 07, 2019 10:06
--- NOTE | 2019-04-07 11:51 | PDOC4 ---
Operative Note Operative Note Date of procedure: 04/07/19 Surgeon: Darren Roberts Defence Intelligence Analyst: Tera Shukla, certified professional controller; Boston Bustillo, advanced practice registered nurse Preoperative diagnosis: left shoulder massive rotator cuff tear Postoperative diagnosis: same Procedure performed: #1 arthroscopic left shoulder rotator cuff repair #2 arthroscopic biceps tenotomy Anesthesia: Gen. plus regional nerve block Findings: #1 large rotator cuff tear involving the upper border subscapularis, supraspinatus and infraspinatus, the latter 2 were retracted to mid humeral head. #2 degenerative changes noted at humeral head, full-thickness cartilage loss #3 labrum intact circumferentially next #4 biceps tendon had a near complete rupture Blood loss: 10mL Components inserted: [employer] Helacoil anchor x 2, footprint for lateral row Reason for procedure: Patient is a very pleasant woman who has had worsening left shoulder pain. Clinical and radiographic examination, including MRI were consistent with the preoperative diagnosis. She had tried physical therapy, anti-inflammatories, and had not had any improvement. She had undergone a successful right-sided rotator cuff repair several years ago and wished to pr oceed with that.. Due to her symptoms and dysfunction, we had a discussion of the risks, benefits, alternatives the above surgery and he wished to proceed. Description of procedure: Patient was greeted in the preoperative holding area where the correct extremity was verified and marked. They were taken to the preoperative holding area where the anesthesiology team placed a regional nerve block. The patient was then taken back to the operative suite and antibiotics were started as they were brought back. Once in the operative room, the patient was transferred gently supine to the operating room table after successful induction of a general anesthetic. After this, she was sat up in a beachchair position maintaining her C-spine in neutral position, large pad under his legs, she was secured to the bed. We then prepped and draped her left upper extremity and shoulder girdle in our usual sterile fashion, we conducted our standard preoperative timeout. I palpated and marked surface anatomy for my planned portal sites. I then used a spinal needle to localize a posterior superior portal and incised skin in accordance with this. After this, I introduced the blunt arthroscopic trocar into the glenohumeral joint followed by the camera. I used a spinal needle to localize an anterosuperior portal and incised skin in accordance with this. I then introduced my arthroscopic probe and conducted my diagnostic arthroscopy with the above-noted findings. I then debrided her rotator cuff tendon from the intra-articular vantage point as well as prepared the footprint after I created a lateral portal under spinal needle localization. At this point, I also performed a biceps tenotomy and inspected the subscapularis, using the arthroscopic wand to free up tissue surrounding it, the subscapularis was intact distally, and the upper border was not mobile at all. The remainder of the rotator cuff had good mobility. After this, I repositioned the camera into the subacromial space and performed a bursectomy with combination of shaver and electrocautery device. I then identified the rotator cuff tear and I debrided the pathologic tendon and prepared my footprint. I next created accessory anterolateral and posterolateral portals for suture management. I then placed my helacoil anchors and shuttled limbs through in a simple configuration. I tied these down with arthroscopic knot-tying techniques. I then cut one limb from each suture and shuttled the remaining limb through the footprint device and impacted in position after creating a starting hole with the awl. The tear was stable to probing and to gentle rotation of the arm. I then removed all loose bony debris and the excess arthroscopic fluid. I took my final pictures prior to this. After this, all the excess fluid and instrumentation was removed. The portals were closed with simple interrupted 3-0 nylon. Sterile dressing was applied followed by an abduction pillow sling. Patient tolerated surgery well. No complications. At the conclusion, she was laid supine and transferred gently supine to the recovery room cart and taken to the PACU in a stable and extubated condition. Postoperative plan is discharge her home, nonweightbearing for 6 weeks. Well get her started on physical therapy. She will follow up with me in 2 weeks, sooner should a problem arise. DARREN ROBERTS II, MD Apr 07, 2019 11:51
[2019-04-07] MEDS ORDERED: ONDA8TAB9 PO (12:09)
[2019-04-07] MEDS ORDERED: DOCU-109 PO (12:11)
[2019-04-07] MEDS ORDERED: OXYC-325 PO (12:14)
[2019-04-07] MEDS ORDERED: oxyCODONE/APAP 5/325 1 TAB TABLET ONE (12:25)
[2019-04-07] MEDS ORDERED: oxyCODONE/APAP 5/325 1 TAB TABLET PO ONE (12:30)
[2019-04-07 12:40] VITALS: BP 147/75
== END 2019-04-07 13:40 | disposition home or self-care (01) ==
LOC: SURG 07:44
PROVIDERS: ATTEND Orthopaedic Surgery Sports Medicine
DX: M75.112 Incomplete rotator cuff tear or rupture of left shoulder, not specified as traumatic (principal); E03.9 Hypothyroidism, unspecified; K21.9 Gastro-esophageal reflux disease without esophagitis; F32.9 Major depressive disorder, single episode, unspecified; Z98.890 Other specified postprocedural states; Z88.8 Allergy status to other drugs, medicaments and biological substances; Z79.899 Other long term (current) drug therapy; Z87.891 Personal history of nicotine dependence
CPT/HCPCS: 29827; 29999; 64415; A7015; C1713; C1782; J0171; J1100; J2001; J2250; J2405; J2704; J2710; J3010; J3490; J7120

== ENCOUNTER → 2019-09-03 | Outpatient (CLI) | payer MEDICARE, BC ==
[~2019-09-03] MED LIST changes: +DOCU-109 PO; +IOHEXOL 180 MG/ML 10 ML VIAL. ONE; +ONDA8TAB9 PO; +OXYC-325 PO; +methylPREDNISolone ACETATE 40 MG/ML VIAL. ONE; +methylPREDNISolone ACETATE 80 MG/ML VIAL. ONE
--- NOTE | 2019-09-03 12:24 | PAIN ---
DATE OF SERVICE: 09/03/2019 PROGRESS NOTE FOR PAIN CLINIC DIAGNOSES: Lumbar radiculopathy with lumbar degenerative disk disease, lumbar spinal stenosis. HISTORY OF PRESENT ILLNESS: The patient is a 74-year-old female who returns for followup status post lumbar epidural steroid injections, most recently seen 01/27/2019, did very well, about 80% improvement after the injection and she did have a left shoulder injection 02/12, which was not as helpful. She has recently had a rotator cuff repair on the left shoulder with still some significant pain residual. The patient's chief complaint today, however, is low back and left lower extremity pain. The patient reports it is a 7 on a scale of 10 at its worse over the past week, 4 on average, 0 at its least and is a 4 today. The patient reports it is aching and shooting, burning and radiating in the low back and left leg, no new motor or sensory deficits, no bowel or bladder incontinence, but still significant pain with walking, standing, changing positions. Initially, she was doing much better with all activities, walking distances, doing household activities and traveling with greater ease and comfort. The patient reports now the pain is returning in the low back, posterior gluteus and the left posterior thigh, and lateral thigh on the left side as well. The patient reports no bowel or bladder incontinence, no new motor or sensory deficits. PHYSICAL EXAMINATION: VITAL SIGNS: The patient's blood pressure 154/78, pulse 85, respirations are 20, temperature is 98.2 degrees Fahrenheit, weight is 112 pounds. GENERAL: The patient is awake, alert, oriented, appropriate, very pleasant demeanor. HEENT: Shows normocephalic, atraumatic. Extraocular movements are intact and symmetrical. Oral cavity, mucous membranes are moist and pink. Dentition is intact. NECK: Shows anterior throat supple without palpable lymphadenopathy noted. Swallow reflex symmetrical. CHEST: Shows normal on inspection. Breath sounds are clear bilaterally. HEART: Shows S1, S2 clear. No murmurs auscultated. ABDOMEN: Soft, nontender, nondistended. BACK: Shows spine grossly in the midline. Normal appearing thoracic kyphosis and minor flattening of lumbar lordotic curvature. Lumbar paraspinous muscle shows symmetrical on inspection and palpation shows some moderate tenderness diffusely bilaterally, but only diffusely without significant radiation. The patient has good rotational motion of lumbar spine, both laterally as well as extension and flexion without difficulty. EXTREMITIES: The patient's lower extremities show deep tendon reflexes at 2+ in patellar and tendo calcaneus tendons. Motor exam is approximately 5 on a scale of 5 bilaterally with dorsiflexion, extension, quadriceps and hamstring flexion. Peripheral pulses are 1+ posterior tibia. No peripheral edema is noted bilaterally. Options were discussed with the patient. The patient's old chart was reviewed as her current medication regimen updated. Current review of systems updated today as well and we will proceed with a lumbar epidural steroid injection first in this series today with fluoroscopic guidance. Risks were discussed including but not limited to bleeding, infection, possibility of epidural hematoma, subsequent neurological compromise, dural puncture, headaches, spinal cord and/or nerve damage, side effects of steroid medication and poor results regarding pain control. The patient understands and wished to proceed. The patient will return to clinic in approximately 2 weeks for followup. She was counseled on return appointment, activity level and side effects to be aware of. DIAGNOSES: Lumbar radiculopathy with lumbar degenerative disk disease, lumbar spinal stenosis. PROCEDURE: Lumbar epidural steroid injection, translaminar approach L5-S1 level using C-arm fluoroscopic guidance under sterile prep and drape using local anesthetic. MEDICATION INJECTED: A total of 120 mg Depo-Medrol plus 10 mL preservative-free normal saline and 2 mL of contrast. CONDITION AT DISCHARGE: Stable. The patient did have a slight headache following the injection with initial notice of cerebrospinal fluid droplet at the needle, base was repositioned with good epidural spread of local anesthetic on the epidurogram during the procedure, but the patient did have mild headache initially after the procedure was completed, but without a significant headache on discharge. ISA PETTIT MD DR: BALWINDER/rossana JOB#: [id number] / [id number]
== END ==
LOC: PNCL 10:11
PROVIDERS: ATTEND Anesthesiology
DX: M51.16 Intervertebral disc disorders with radiculopathy, lumbar region (principal); M48.061 Spinal stenosis, lumbar region without neurogenic claudication
CPT/HCPCS: 62323; J1030; J1040; Q9965

== ENCOUNTER → 2019-10-01 | Outpatient (CLI) | payer MEDICARE, BC ==
[~2019-10-01] MED LIST changes: -IOHEXOL 180 MG/ML 10 ML VIAL. ONE; -methylPREDNISolone ACETATE 40 MG/ML VIAL. ONE; -methylPREDNISolone ACETATE 80 MG/ML VIAL. ONE
[2019-10-01 11:52] LABS: BASO # 0.1 x10^3/uL (0.0-0.2); BASO % 1 % (0-3); EOS # 0.4 x10^3/uL (0.0-0.7); EOS % 6 % (0-3); HEMOGLOBIN 11.3 g/dL (12.0-15.5); LYMPH # 1.4 x10^3/uL (1.0-4.8); LYMPH % 23 % (24-48); MEAN CORPUSCULAR HEMOGLOBIN 32 pg (25-35); MEAN CORPUSCULAR HGB CONC 35 g/dL (31-37); MEAN CORPUSCULAR VOLUME 92 fL (79-100); MONO # 0.5 x10^3/uL (0.0-1.1); MONO % 8 % (0-9); NEUT # 3.8 x10^3/uL (1.8-7.7); NEUT % 63 % (31-73); PLATELET COUNT 301 x10^3/uL (140-400); RED BLOOD COUNT 3.49 x10^6/uL (3.50-5.40); RED CELL DISTRIBUTION WIDTH 14.2 % (11.5-14.5); WHITE BLOOD COUNT 6.1 x10^3/uL (4.0-11.0)
--- NOTE | 2019-10-01 11:59 | EKG ---
[facility] [address] [place] [address] Test Date: 2019-10-01 Test Time: 11:53:33 Pat Name: CARLOS MANUEL DOMIGNO Department: Room: Gender: F Eyeglass Lens Generator: ENRIQUE : 1945 Requested By: DESTINI ROBERTS Order Number: [id number] Reading MD: Florentino Blue MD Measurements Intervals [place] Rate: 78 P: 0 WI: 152 QRS: -29 QRSD: 86 T: 72 QT: 356 QTc: 409 Interpretive Statements SINUS RHYTHM ATRIAL PREMATURE COMPLEX(ES) NON-SPECIFIC ST/T CHANGES Electronically Signed On 10-02-2019 9:42:15 CDT by Florentino Blue MD
[2019-10-01 12:09] LABS: ALBUMIN 3.6 g/dL (3.4-5.0); ANION GAP 10 (6-14); BLOOD UREA NITROGEN 16 mg/dL (7-20); CALCIUM 8.7 mg/dL (8.5-10.1); CARBON DIOXIDE 25 mmol/L (21-32); CHLORIDE 105 mmol/L (98-107); CREATININE 0.9 mg/dL (0.6-1.0); GFR 61.4; GLUCOSE 94 mg/dL (70-99); POTASSIUM 3.5 mmol/L (3.5-5.1); SODIUM 140 mmol/L (136-145)
[2019-10-01 12:11] LABS: C-REACTIVE PROTEIN < 0.5 mg/L (0-3.3)
[2019-10-01 12:13] LABS: PROTHROMBIN TIME PATIENT 12.7 SEC (11.7-14.0)
--- NOTE | 2019-10-01 15:25 | RAD ---
CHEST PA LATERAL History: Preop shoulder surgery Comparison: 08/01/2016 Findings: 2 views of the chest are submitted. More defined round opacities of the inferior hemithoraces bilaterally are likely due to nipple shadows. There is emphysema. Pericardial cardiac silhouette is similar, not significantly enlarged. There is reverse S-shaped curvature of the thoracic spine, also lumbar levoscoliosis. There is no dependent pleural fluid, lobar consolidation, or pneumothorax. Impression: 1. There is emphysema. 2. There is scoliosis of the thoracic and lumbar spine. Electronically signed by: Paul Palma MD (10/01/2019 3:22 PM) [facility]
[2019-10-02 01:08] LABS: HEMOGLOBIN A1C 5.8 % (4.8-5.6)
== END ==
LOC: EDSTATUS 11:00 → SURGPAT 11:05
PROVIDERS: ATTEND Orthopaedic Surgery Sports Medicine
DX: Z01.818 Encounter for other preprocedural examination (principal); M19.012 Primary osteoarthritis, left shoulder; M96.89 Other intraoperative and postprocedural complications and disorders of the musculoskeletal system; E03.9 Hypothyroidism, unspecified; K21.9 Gastro-esophageal reflux disease without esophagitis; F32.9 Major depressive disorder, single episode, unspecified; Z86.79 Personal history of other diseases of the circulatory system; Z87.891 Personal history of nicotine dependence; Z79.899 Other long term (current) drug therapy; Z79.891 Long term (current) use of opiate analgesic
CPT/HCPCS: 36415; 71046; 80048; 80307; 82040; 82306; 83036; 85025; 85610; 85730; 86140; 87641; 93005

== ENCOUNTER → 2019-10-02 | Outpatient (CLI) | payer MEDICARE, BC | END | disposition home or self-care (01) | LOC: LAB 10:50 | PROVIDERS: ATTEND Orthopaedic Surgery Sports Medicine | DX: Z11.59 Encounter for screening for other viral diseases (principal) | CPT/HCPCS: U0003-CS ==

== ENCOUNTER 2019-10-06 05:46 | Inpatient (IN) | payer MEDICARE, BC ==
[~2019-10-06] VITALS: Ht 162.6 cm; Wt 47.0 kg
[2019-10-06] MEDS ORDERED: ceFAZolin SODIUM IV Push 1 GM VIAL. IVP PRN (06:00)
[2019-10-06] MEDS ORDERED: ACETAMINOPHEN 500 MG TABLET PO PRN (06:00)
[2019-10-06] MEDS ORDERED: MIDAZOLAM HCL/PF 2 MG/2 ML VIAL. ONE (06:49)
[2019-10-06] MEDS ORDERED: BUPIVACAINE MPF 0.5% 30 ML VIAL. ONE (06:49)
[2019-10-06] MEDS ORDERED: DEXAMETHASONE SOD PHOS 20 MG/5 ML VIAL. ONE (06:49)
[2019-10-06] MEDS ORDERED: EPINEPHrine 1 MG/ML VIAL ONE (06:50)
[2019-10-06] MEDS ORDERED: IV RINGERS,LACTATED 1000ML 1,000 ML IV SCH (07:00)
[2019-10-06] MEDS ORDERED: ONDANSETRON PF 4 MG/2 ML VIAL. IV PRN (07:00)
[2019-10-06] MEDS ORDERED: MORPHINE SULFATE 2 MG/ML VIAL. IV PRN ×2 (07:00)
[2019-10-06] MEDS ORDERED: traMADol 50 MG TABLET PO PRN ×2 (07:00)
[2019-10-06] MEDS ORDERED: fentaNYL PF VIAL 100 MCG/2 ML VIAL IV PRN ×2 (07:00)
[2019-10-06] MEDS ORDERED: DEXTROSE 50% 25 GM / 50ML DISP.SYRIN. IV PRN (07:00)
[2019-10-06] MEDS ORDERED: CALCIUM CARBONATE 500 MG TAB.CHEW PO PRN (07:00)
[2019-10-06] MEDS ORDERED: ZOLPIDEM 5 MG TABLET. PO PRN (07:00)
[2019-10-06] MEDS ORDERED: IV NORMAL SALINE 1000ML BAG 1,000 ML IV SCH (07:00)
[2019-10-06] MEDS ORDERED: HYDROmorphone 2 MG/ML VIAL IV PRN (07:00)
[2019-10-06] MEDS ORDERED: HYDROcodone/APAP 7.5/325MG 1 TAB TABLET PO PRN (07:00)
[2019-10-06] MEDS ORDERED: LIDOCAINE 1% PF 2 ML VIAL. ID PRN (07:00)
[2019-10-06] MEDS ORDERED: ACETAMINOPHEN 325 MG TABLET. PO PRN (07:00)
[2019-10-06] MEDS ORDERED: oxyCODONE/APAP 7.5/325 1 TAB TABLET PO PRN (07:00)
[2019-10-06] MEDS ORDERED: oxyCODONE/APAP 5/325 1 TAB TABLET PO PRN (07:00)
[2019-10-06] MEDS ORDERED: PROCHLORPERAZINE 10 MG/2 ML VIAL. IV PRN (07:00)
[2019-10-06] MEDS ORDERED: NALOXONE 0.4 MG/ML VIAL. IV PRN (07:00)
[2019-10-06] MEDS ORDERED: 0.9 % SODIUM CHLORIDE 10 ML DISP.SYRIN. IV PRN (07:00)
[2019-10-06] MEDS ORDERED: PROCHLORPERAZINE 5 MG TABLET. PO PRN (07:00)
[2019-10-06] MEDS ORDERED: METOCLOPRAMIDE HCL 10 MG/2 ML VIAL. IV PRN (07:00)
[2019-10-06] MEDS ORDERED: ROCURONIUM 50 MG/5 ML VIAL. ONE (07:01)
[2019-10-06] MEDS ORDERED: SUCCINYLCHOLINE 200 MG/10 ML VIAL. ONE (07:02)
[2019-10-06] MEDS: ceFAZolin SODIUM IV Push 1 GM VIAL. IVP SCH ×2 (07:37→20:17)
[2019-10-06] MEDS ORDERED: TV=100ml MORPHINE 5 MG, KETOROLAC 30 MG, ROPIVacaine 0.5% PF 60 ML, EPINEPH... INT ART ONE (08:00)
[2019-10-06] MEDS ORDERED: TRANEXAMIC ACID 1,000 MG in IV NS 50ML -- 1ST BAG INJ ONE (08:00)
[2019-10-06] MEDS ORDERED: PHENYLEPHRINE in 0.9% NACL PF 1 MG/10 ML SYRINGE. IV ONE (08:09)
[2019-10-06] MEDS ORDERED: PHENYLEPHRINE 10 MG/ML VIAL. ONE (08:09)
[2019-10-06] MEDS ORDERED: ONDANSETRON PF 4 MG/2 ML VIAL. ONE (08:09)
[2019-10-06] MEDS ORDERED: DEXAMETHASONE SOD PHOS 4 MG/ML VIAL ONE (08:09)
[2019-10-06] MEDS ORDERED: SEVOFLURANE 61 TO 120 MINUTES. IH ONE (08:09)
[2019-10-06] MEDS ORDERED: GLYCOPYRROLATE 1 MG/5 ML VIAL. ONE (08:45)
[2019-10-06] MEDS ORDERED: NEOSTIGMINE METHYLSULFATE 5 MG/5 ML SYRINGE. ONE (08:45)
--- NOTE | 2019-10-06 09:49 | PDOC4 ---
Operative Note Operative Note Date of procedure: 10/06/2019 Surgeon: Darren Roberts Count Room Clerk: Tera Shukla Preoperative diagnosis: #1 recurrent supraspinatus tear 2. Left shoulder degenerative joint disease Postop diagnosis: Same Procedure performed: Left reverse total shoulder arthroplasty Anesthesia: General plus regional nerve block Complications: None Blood loss: 100 mL Components inserted:Tornier AScend size 1B stem, Aequalis reversed II centered glenoid sphere, 36 mm, +6 polyethylene, +0 reversed tray, 25 mm baseplate Reason for procedure: Patient is a very pleasant 74-year-old female who I have previously operated on, a rotator cuff repair, it failed to heal. Due to persistent pain and interference with her activities of daily living, we discussed proceeding with a reverse shoulder arthroplasty. She elected to proceed. Description of procedure: Patient was greeted in the preoperative area by myself or the correct extremity was verified and marked. She did have placement of a regional nerve block by the anesthesiology team. After this, she was taken back to the operative suite and her antibiotics were started as she was brought back. Once in the operating room, she was transferred gently supine to the operating table and secured to the bed with all pressure points padded after successful induction of a general anesthetic and being set up in a beachchair position. C- spine was maintained in a neutral position and she had a large pad under her legs. We then proceeded prep and drape left upper extremity and shoulder girdle in her usual sterile fashion including Ioban at the periphery of the drapes. We then conducted our standard preoperative timeout. I palpated ayala her surface anatomy and rashid a line on skin for my standard deltopectoral incision, incised skin with a scalpel and dissected subcutaneous tissue with Metzenbaum scissors, using electrocautery for hemostasis as bleeders were encountered. Identified her cephalic vein and bluntly dissected this interval, mobilizing the vein laterally. Clavipectoral fascia was incised in line with the skin incision and identified the conjoined tendon. I placed my self-retaining retractor at this point. I palpated for biceps tendon but was unable to find it, consistent with her MRI finding. I opened bicipital groove with my scissors and follow this up to open the rotator interval. I then took down the subscapularis with electrocautery, using traction sutures as I proceeded. I then removed osteophytes to identify her articular margin better. I noted that her supraspinatus and anterior infraspinatus were torn and retracted. The suture m aterial and suture anchor were removed. I then made my neck cut. I then placed my Bankart retractor at her anterior glenoid and used the scalpel circumferentially around the glenoid to perform my releases. After this, used a rondure to remove some of the labrum. I then used the drill guide and placed my pin centrally followed by reaming down to a punctate bleeding bony bed. I then used a peripheral reamer as well. I then drilled for my baseplate hole and and inserted my baseplate. Given her small size, I opted just to place the locking screws. Prior to impacting my glenoid baseplate and to place, I did thoroughly irrigate the out the shoulder joint and operative field. After this, I removed my retractors, adding different retractors and reposition the arm to gain exposure to her proximal humerus and began broaching then impacted my broach, it had a very snug fit. I then placed my glenosphere on, ensuring that it was fully seated and locked in place. After this, I again reposition the arm at a my baseplate and trial polyethylene and reduced the glenohumeral joint. She had good range of motion and stability. I then redislocated the shoulder, removed all trial components and impacted my stem into position followed by the tray. I then trialed again and was happy. I then redislocated the shoulder, traded out the trial polyethylene articular insert for the actual polyethylene liner. Prior to impacting this in position again everything was thoroughly irrigated. Prior to seating my final stem, I did place Ethibond around the stem through drill holes in the proximal humerus. With the shoulder reduced, I then repaired the subscapularis and close the rotator interval. After this, I injected my periarticular mixture to the baldemar-incisional soft tissues. Her deltopectoral interval was then closed with running 0 Vicryl followed by inverted interrupted 2-0 Vicryl for subcutaneous tissue and running 3-0 Monocryl in a buried subcuticular fashion for skin. All counts correct x2 prior to wound closure. No complications. At the conclusion, she was laid supine and transferred gently supine to the recovery room cart and taken to PACU in stable and extubated condition. Prior to transferring her, she was placed into an abduction pillow sling. Postoperative plan is to admit her for observation and pain control. She will be nonweightbearing. DARREN ROBERTS II, MD Oct 06, 2019 09:49
[2019-10-06] MEDS ORDERED: TRANEXAMIC ACID 1,000 MG in IV NS 50ML -- 2ND BAG INJ ONE (10:00)
--- NOTE | 2019-10-06 10:36 | RAD ---
SHOULDER 2+V LEFT History: Reason: POST OP / Spl. Instructions: / History: Technique: 3 views left shoulder. Comparison: March 11, 2019 Findings: Interval left reverse total shoulder arthroplasty. Expected postoperative findings subcutaneous and intra-articular gas. Normal alignment. No fracture. Impression: 1. Interval left reverse total shoulder arthroplasty. No immediate hardware complications. Electronically signed by: Asif Chun DO (10/06/2019 10:34 AM) [id number]
[2019-10-06 12:15] VITALS: BP 152/66
--- NOTE | 2019-10-06 12:51 | NUR ---
AWAKE. REFUSED FOOD AT THIS TIME. WATER AND SPRITE GIVEN. LEFT ARM REMAINS NUMB AND ELEVATED ON PILLOWS. NO MOTION IN LEFT HAND/ARM AT THIS TIME. DENIES PAIN. LEFT ARM IN SIMPLE SLING. ADMISSION HISTORY COMPLETED
[2019-10-06 15:00] VITALS: BP 135/60
[2019-10-06] MEDS: IV DEXTROSE 5 %-0.45 % NACL 1,000 ML IV SCH (17:11)
[2019-10-06] MEDS: FERROUS SULFATE 325 MG TABLET. PO SCH (17:11)
--- NOTE | 2019-10-06 18:11 | NUR ---
up in chair watching tv. left arm remains numb "" warm to touch and good pulses; still no motion
[2019-10-06 19:36] VITALS: BP 140/66
[2019-10-06] MEDS: CELECOXIB 100 MG CAPSULE. PO SCH (20:19)
[2019-10-06 22:40] VITALS: BP 152/68
[2019-10-07] MEDS: IV DEXTROSE 5 %-0.45 % NACL 1,000 ML IV SCH ×2 (02:26→08:00)
[2019-10-07] MEDS: ceFAZolin SODIUM IV Push 1 GM VIAL. IVP SCH (02:26)
[2019-10-07 02:57] VITALS: BP 179/86
[2019-10-07] MEDS ORDERED: LEVOTHYROXINE 50 MCG TABLET PO SCH (06:00)
[2019-10-07] MEDS ORDERED: MAGNESIUM HYDROXIDE 2,400 MG/30 ML ORAL.SUSP. PO PRN (06:00)
[2019-10-07] MEDS: HYDROcodone/APAP 10/325 1 TAB TABLET PO PRN ×2 (06:40→10:22)
[2019-10-07 07:00] VITALS: BP 169/77
[2019-10-07 08:41] LABS: HEMATOCRIT 25.8 % (36.0-47.0); HEMOGLOBIN 8.7 g/dL (12.0-15.5)
[2019-10-07] MEDS ORDERED: CHOLECALCIFEROL (VITAMIN D3) 1,000 UNIT TABLET PO SCH (09:00)
[2019-10-07] MEDS ORDERED: MULTIVITAMIN with MINERAL TABLET. PO SCH (09:00)
[2019-10-07] MEDS ORDERED: SENNOSIDES/DOCUSATE 8.6/50MG TABLET. PO SCH (09:00)
[2019-10-07] MEDS ORDERED: DULoxetine HCL 30 MG CAPSULE.DR PO SCH (09:00)
[2019-10-07] MEDS: FERROUS SULFATE 325 MG TABLET. PO SCH (09:04)
[2019-10-07] MEDS: CELECOXIB 100 MG CAPSULE. PO SCH (09:04)
--- NOTE | 2019-10-07 09:07 | NUR ---
Patient refused Cymbalta due to side effects of drowsiness. Patient stated she takes medication at bedtime.
--- NOTE | 2019-10-07 09:44 | PDOC ---
ORTHO PROGRESS NOTES Subjective She feels like her pain is tolerable. No other concerns today Vitals Vital Signs Date Time Temp Pulse Resp B/P (MAP) Pulse Ox O2 Delivery O2 Flow Rate FiO2 10/07/19 09:04 92 10/07/19 07:40 Room Air 10/07/19 07:00 98.2 18 169/77 (107) 97 98.2 10/06/19 10:20 8 Labs Laboratory Tests Test 10/07/19 04:20 Hemoglobin 8.7 g/dL (12.0-15.5) Hematocrit 25.8 % (36.0-47.0) Mean Corpuscular Hemoglobin Concent 34 g/dL (31-37) Laboratory Tests Test 10/07/19 04:20 Hemoglobin 8.7 g/dL (12.0-15.5) Hematocrit 25.8 % (36.0-47.0) Mean Corpuscular Hemoglobin Concent 34 g/dL (31-37) Notes She is awake and alert, left upper extremity is in a sling. Incision is clean dry and intact. Normal motor and sensation are present in her hand Assessment and Plan She will be discharged home today. We will get her started on physical therapy when I see her back in clinic. DESTINI ROBERTS II, MD Oct 07, 2019 09:44
--- NOTE | 2019-10-07 09:46 | DISCH ---
DISCHARGE INSTRUCTIONS Condition on Discharge Condition on Discharge: Stable Activity After Discharge Activity Instructions for Disc: Other, see below Other activity instructions: Arm to remain in sling Bathing Instructions: Shower-keep dressing dry Driving Instructions after Dis: Do not drive Weight Bearing Status after Di: Non weight bearing Diet after Discharge Diet after Discharge: Regular Wound Incision Care Wound/Incision Care: Ice to area for comfort, Keep wound/cast CDI, Do not change dressing Contacting the DR. after DC Call your doctor for: Concerns you may have Follow-Up Follow up with: Shweta in 2 wks DESTINI ROBERTS II, MD Oct 07, 2019 09:46
--- NOTE | 2019-10-07 10:54 | NUR ---
SS following for discharge planning. SS reviewed pt chart and discussed with pt RN. Pt is from home with spouse and is currently on room air. Discharge order on the chart for home with self care.
[2019-10-07 11:00] VITALS: BP 143/77
--- NOTE | 2019-10-07 12:27 | NUR ---
Discharge Note: CARLOS MANUEL DOMINGO Discharge instructions and discharge home medications reviewed with Patient and a copy given. All questions have been answered and understanding verbalized. The following instructions and handouts were given: written prescriptions, follow up instructions, incision care, s/p surgical care Discontinued lines and drains: peripheral IV discontinued, dressing applied adn intact. Patient discharged to home with friend via wheelchair
[2019-10-07] MEDS ORDERED: BISACODYL 10 MG SUPP.RECT. PR PRN (16:00)
== END 2019-10-07 12:10 | disposition home or self-care (01) | DRG 483 ==
LOC: OPSVCIP 05:46 → EDSTATUS 07:30 → 2 NORTH 11:34
PROVIDERS: ADMIT Orthopaedic Surgery Sports Medicine; ATTEND Orthopaedic Surgery Sports Medicine
PROC: 0RRK00Z Replacement of Left Shoulder Joint with Reverse Ball and Socket Synthetic Substitute, Open Approach (ICD-10-PCS; principal; 2019-10-06 07:30)
DX: M75.102 Unspecified rotator cuff tear or rupture of left shoulder, not specified as traumatic (principal); M19.012 Primary osteoarthritis, left shoulder; R51 Headache; K21.9 Gastro-esophageal reflux disease without esophagitis; F32.9 Major depressive disorder, single episode, unspecified; Z87.891 Personal history of nicotine dependence; E89.0 Postprocedural hypothyroidism; Z79.899 Other long term (current) drug therapy; Z88.8 Allergy status to other drugs, medicaments and biological substances
CPT/HCPCS: 36415; 73030; 85014; 85018; 86850; 86900; 86901; A7015; C1713; J0171; J0330; J0690; J1100; J2250; J2270; J2370; J2405; J2710; J2795; J3490; J7030; J7042; J7120; 97116-GP; A4565; C1769; G0378

== ENCOUNTER → 2020-01-22 | Outpatient (CLI) | payer MEDICARE, BC ==
[~2020-01-22] MED LIST changes: +IOHEXOL 180 MG/ML 10 ML VIAL. ONE; +methylPREDNISolone ACETATE 40 MG/ML VIAL. ONE; +methylPREDNISolone ACETATE 80 MG/ML VIAL. ONE
--- NOTE | 2020-01-22 08:46 | PDOC ---
Progress Note - Pain Clinic Date of Service: DOS: DATE: 01/22/20 TIME: 08:43 Diagnosis: Dx: Lumbar radiculopathy with lumbar degenerative disc disease and lumbar spinal stenosis History or Present Illness: HPI: 74-year-old female returns follow-up status post lumbar epidural steroid injection x1 on September 03, 2019. Patient reports 80% improvement initially pain is returning down the low back and left lower extremity posterior gluteus posterior thigh posterior calf and posterior lateral hip over the past 2 to 3 weeks patient reports the pain is increasing is rated as a 7 on a scale of 10 is worse over the past week 5 on average is 1 at its least is a 5 today. Patient reports he doing very well she is been increasing her activities walking doing household activities work activities traveling with greater ease and comfort now the pain is returning however and most noticed when she is walking her dog for longer than 20 to 30 minutes. Patient did have a shoulder replacement on the left and is doing physical therapy currently which is helping as well. Patient reports the pain is tingling and radiating the low back left lower extremity sharp and shooting at times as well worse with activity. Patient reports generalized not awaken her from sleep at night she sleeps fairly well much better with sitting or laying down. Physical Exam: VS: Blood pressures 122/60 pulse 80 respirations 20 temperature 98.5 F weight is 115 pounds PE: PHYSICAL EXAMINATION: GENERAL: The patient is awake, alert, oriented, appropriate, very pleasant demeanor HEENT: Shows normocephalic, atraumatic. Extraocular movements are intact and symmetrical. Oral cavity: Mucous membranes moist and pink. NECK: Shows anterior throat supple without palpable lymphadenopathy noted. Swallow reflex symmetrical. CHEST: Shows normal on inspection. Breath sounds are clear bilaterally, no rales rhonchi or wheezes auscultated. HEART: Shows S1, S2 clear. No murmurs auscultated. ABDOMEN: Soft, nontender, nondistended. No palpable organomegaly is noted. No rebound or guarding demonstrated. BACK: Shows spine grossly in the midline. Normal-appearing cervical lordotic curvature. There is slightly increased thoracic kyphosis, some minor flattening of the lumbar lordotic curvature. Lumbar paraspinous muscles show symmetrical on inspection, on palpation shows some moderate tenderness diffusely throughout the upper, middle and lower distribution of the paraspinous muscles without specific trigger points, without radiation of pain. The patient has good rotational motion of the lumbar spine, both laterally as well as extension and flexion without significant difficulty. No tenderness over the spinous processes, sacrum or sacroiliac regions. EXTREMITIES: Lower extremities show deep tendon reflexes 2+ in the patellar and tendo calcaneus tendons. Motor exam is 4 on a scale of 5 with right dorsiflexion, extension, quadriceps and hamstring flexion and 4/5 on the left. Peripheral pulses are 1+ posterior tibial. No peripheral edema is noted bilaterally. Lower extremities are warm and dry to touch, equal in color and appearance. SKIN: Shows warm and dry, good turgor. No edema. No sores, rashes or bruising throughout. Procedure: Procedure: Options were discussed with the patient. Patient's old chart was reviewed as her current medication regimen updated current review of systems updated today as well. We will proceed with a second in a series lumbar epidural steroid injection today with fluoroscopic guidance. Risks were discussed including but not limited to: Bleeding, infection, possibility of epidural hematoma and subsequent neurological compromise, dural puncture, headaches, spinal cord and/or nerve damage, side effects of steroid medication, and poor results regarding pain control. Patient understands wished to proceed. Patient will return to clinic in approximate 2 weeks for follow-up, was counseled as to return appointment activity level and side effects to be aware of. Medication Injected: Med Injected: Procedure is lumbar epidural steroid injection under local anesthetic using sterile prep and drape at the L5-S1 level using C-arm fluoroscopic guidance in both AP and lateral views medications injected is 120 mg Depo-Medrol + 10 mL preservative-free normal saline and 2 mL contrast- condition at discharge is stable patient tolerated procedure well had no complications. Condition at Discharge: Condition at Discharge: Condition at discharge is stable, patient tolerated procedure well had no complications. ISA PETTIT MD Jan 22, 2020 08:46
== END ==
LOC: PNCL 07:50
PROVIDERS: ATTEND Anesthesiology
DX: M48.061 Spinal stenosis, lumbar region without neurogenic claudication (principal); K21.9 Gastro-esophageal reflux disease without esophagitis; E03.9 Hypothyroidism, unspecified; Z96.612 Presence of left artificial shoulder joint; Z88.8 Allergy status to other drugs, medicaments and biological substances; Z87.891 Personal history of nicotine dependence; Z79.899 Other long term (current) drug therapy
CPT/HCPCS: 62323; J1030; J1040; Q9965

== ENCOUNTER → 2020-02-16 | Outpatient (CLI) | payer MEDICARE, BC ==
--- NOTE | 2020-02-16 10:44 | PDOC ---
Progress Note - Pain Clinic Date of Service: DOS: DATE: 02/16/20 TIME: 10:41 Diagnosis: Dx: Lumbar radiculopathy with lumbar degenerative disease and lumbar spinal stenosis Left shoulder joint pain with osteoarthritis History or Present Illness: HPI: 75-year-old female returns for follow-up status post lumbar epidural steroid injection x2. Patient last seen January 22, 2020 did very well initially with about 80% improvement in the pain but the pain is returning and is not lasting as long as they have previously. Patient reports her pain is 8 on scale 10 is worse over the past week 3 on average 0 its least and is a 5 today. Patient ports pain low back left lower extremity posterior gluteus posterior thigh posterior calf and lateral thigh calf as well on the left side patient scribes as burning aching sharp shooting in the left lower extremity and radiating the left lower extremity. Patient reports no new motor or sensory deficits no new bowel or bladder incontinence or other complaints. Physical Exam: VS: Blood pressure 145/72 pulse is 78 respirations are 16 temperature 98.1 F weight is 114 pounds PE: PHYSICAL EXAMINATION: GENERAL: The patient is awake, alert, oriented, appropriate, very pleasant demeanor HEENT: Shows normocephalic, atraumatic. Extraocular movements are intact and symmetrical. NECK: Shows anterior throat supple without palpable lymphadenopathy noted. CHEST: Shows normal on inspection. Breath sounds are clear bilaterally. HEART: Shows S1, S2 clear. No murmurs auscultated. ABDOMEN: Soft, nontender, nondistended, flat. No palpable organomegaly is noted. No rebound or guarding demonstrated. BACK: Shows spine grossly in the midline. Normal-appearing cervical lordotic curvature. There is slightly increased thoracic kyphosis, some minor flattening of the lumbar lordotic curvature. Lumbar paraspinous muscles show symmetrical on inspection, on palpation shows some moderate tenderness diffusely throughout the upper, middle and lower distribution of the paraspinous muscles without specific trigger points, without radiation of pain. The patient has good rotational motion of the lumbar spine, both laterally as well as extension and flexion without significant difficulty. No tenderness over the spinous p rocesses, sacrum or sacroiliac regions. EXTREMITIES: Lower extremities show deep tendon reflexes 2+ in the patellar and tendo calcaneus tendons. Motor exam is 4 on a scale of 5 with right dorsiflexion, extension, quadriceps and hamstring flexion and 4/5 on the left. Peripheral pulses are 1+ posterior tibial. No peripheral edema is noted bilaterally. Lower extremities are warm and dry to touch, equal in color and appearance. SKIN: Shows warm and dry, good turgor. No edema. No sores, rashes or bruising throughout. Procedure: Procedure: Pressure discussed with the patient. Patient chart was reviewed as her current medication regimen updated current review of systems updated today as well. We will proceed with a third in the series lumbar epidural steroid injection today with fluoroscopic guidance. Risks were discussed including but not limited to: Bleeding, infection, possibility of epidural hematoma and subsequent neurological compromise, dural puncture, headaches, spinal cord and/or nerve damage, side effects of steroid medication, and poor results regarding pain control. Patient understands wished to proceed. Patient will return to clinic in approximate 2 weeks for follow-up was counseled as to return appointment act ivity level and side effects to be aware of. Medication Injected: Med Injected: Procedure is lumbar epidural steroid injection under local anesthetic using sterile prep and drape at the L5-S1 level using C-arm fluoroscopic guidance in both AP and lateral views medications injected is 120 mg Depo-Medrol + 10 mL preservative-free normal saline and 2 mL contrast- condition at discharge is stable patient tolerated procedure well had no complications. Condition at Discharge: Condition at Discharge: Condition at discharge is stable, patient tolerated the procedure well and had no complications. ISA PETTIT MD Feb 16, 2020 10:44
== END | disposition home or self-care (01) ==
LOC: PNCL 09:30
PROVIDERS: ATTEND Anesthesiology
DX: M51.16 Intervertebral disc disorders with radiculopathy, lumbar region (principal); M48.061 Spinal stenosis, lumbar region without neurogenic claudication; M19.012 Primary osteoarthritis, left shoulder; I10 Essential (primary) hypertension; E78.00 Pure hypercholesterolemia, unspecified; E03.9 Hypothyroidism, unspecified; F32.9 Major depressive disorder, single episode, unspecified; K21.9 Gastro-esophageal reflux disease without esophagitis; Z79.899 Other long term (current) drug therapy; Z87.891 Personal history of nicotine dependence; Z98.890 Other specified postprocedural states; Z88.1 Allergy status to other antibiotic agents; Z88.8 Allergy status to other drugs, medicaments and biological substances
CPT/HCPCS: 62323; J1030; J1040; Q9965

== ENCOUNTER → 2020-04-30 | Outpatient (CLI) | payer MEDICARE, BC ==
[~2020-04-30] MED LIST changes: +BUPR100T7 PO; +HYDR-2759 PO
--- NOTE | 2020-04-30 09:49 | PDOC ---
Progress Note - Pain Clinic Date of Service: DOS: DATE: 04/30/20 TIME: 09:46 Diagnosis: Dx: Lumbar radiculopathy with lumbar degenerative disc disease lumbar spinal stenosis Left shoulder joint pain with osteoarthritis History or Present Illness: HPI: 75-year-old female returns for follow-up status post lumbar epidural steroid injections most recently February 16, 2020. Patient ports did very well about 80% improvement after that she been doing physical therapy which is helpful but only temporary. Patient reports still significant pain in her low back left lower extremity posterior gluteus posterior thigh posterior calf to the level of the ankle on the left side. Patient point is worse with walking standing changing positions better with sitting or laying down generally is not awaken her from sleep but can on some nights and has more recently over the past several weeks. Patient reports her pain is an 8 on scale 10 is worse over the past week 6 on average for its least is a 6 today patient ports is aching and shooting burning in quality and aching in the low back as well. Patient reports no new motor or sensory deficits no new bowel or bladder incontinence or other complaints. Physical Exam: VS: Blood pressure is 137/60 pulse 85 respirations 16 temperature 97.9 F height is 5 feet 4 inches weight 117 pounds PE: PHYSICAL EXAMINATION: GENERAL: The patient is awake, alert, oriented, appropriate, very pleasant demeanor HEENT: Shows normocephalic, atraumatic. Extraocular movements are intact and symmetrical. Oral cavity: Mucous membranes moist and pink. Dentition is intact. NECK: Shows anterior throat supple without palpable lymphadenopathy noted. Swallow reflex symmetrical. CHEST: Shows normal on inspection. Breath sounds are clear bilaterally. HEART: Shows S1, S2 clear. No murmurs auscultated. ABDOMEN: Soft, nontender, nondistended, flat. No palpable organomegaly is noted. BACK: Normal-appearing cervical lordotic curvature. There is slightly increased thoracic kyphosis, some minor flattening of the lumbar lordotic curvature. Patient has significant leftward scoliosis of the lumbar and t horacic spines. Lumbar paraspinous muscles show symmetrical on inspection, on palpation shows some moderate tenderness diffusely throughout the upper, middle and lower distribution of the paraspinous muscles, but without specific trigger points, without radiation of pain. The patient has good rotational motion of the lumbar spine, both laterally as well as extension and flexion without significant difficulty. No tenderness over the spinous processes, sacrum or sacroiliac regions. EXTREMITIES: Lower extremities show deep tendon reflexes 2+ in the patellar and tendo calcaneus tendons. Motor exam is 4 on a scale of 5 with right gutierrez siflexion, extension, quadriceps and hamstring flexion and 4/5 on the left. Peripheral pulses are 1+ posterior tibial. No peripheral edema is noted bilaterally. Lower extremities are warm and dry to touch, equal in color and appearance. SKIN: Shows warm and dry, good turgor. No edema. No sores, rashes or bruising throughout. Procedure: Procedure: Options were discussed with the patient. Patient chart reviewed as her current medication regimen updated current review of systems updated today as well. We will proceed with a first in the series lumbar epidural steroid traction today with fluoroscopic guidance. Risks were discussed including but not limited to: Bleeding, infection, possibility of epidural hematoma and subsequent neurological compromise, dural puncture, headaches, spinal cord and/or nerve damage, side effects of steroid medication, and poor results regarding pain control. Patient understands and wished to proceed. Patient will return to the clinic in approximate 2 weeks for follow-up, was counseled as return appointment to the level, and side effects to be aware of. Medication Injected: Med Injected: Procedure is lumbar epidural steroid injection under local anesthetic using sterile prep and drape at the L5-S1 level using C-arm fluoroscopic guidance in both AP and lateral views medications injected is 120 mg Depo-Medrol + 10 mL preservative-free normal saline and 2 mL contrast- condition at discharge is stable patient tolerated procedure well had no complications. Condition at Discharge: Condition at Discharge: Condition at discharge is stable, patient tolerated the procedure well and had no complications. ISA PETTIT MD Apr 30, 2020 09:49
--- NOTE | 2020-04-30 09:50 | PDOC4 ---
PROCEDURE Procedure Patient was consented for lumbar epidural steroid injection. Risks were dis cussed including but not limited to: Bleeding, infection, possibility of epidural hematoma and subsequent neurological compromise, dural puncture, headaches, spinal cord and/or nerve damage, side effects of steroid medication, and poor results regarding pain control. Patient understands and wished to proceed. Procedure is lumbar epidural steroid injection under local anesthetic using sterile prep and drape at the L5-S1 level using C-arm fluoroscopic guidance in both AP and lateral views medications injected is 120 mg Depo-Medrol + 10 mL preservative-free normal saline and 2 mL contrast- condition at discharge is stable patient tolerated procedure well had no complications. ISA PETTIT MD Apr 30, 2020 09:50
== END | disposition home or self-care (01) ==
LOC: PNCL 09:03
PROVIDERS: ATTEND Anesthesiology
DX: M51.16 Intervertebral disc disorders with radiculopathy, lumbar region (principal); M48.061 Spinal stenosis, lumbar region without neurogenic claudication; M19.012 Primary osteoarthritis, left shoulder; E78.00 Pure hypercholesterolemia, unspecified; I10 Essential (primary) hypertension; K21.9 Gastro-esophageal reflux disease without esophagitis; E03.9 Hypothyroidism, unspecified; F32.9 Major depressive disorder, single episode, unspecified; Z79.899 Other long term (current) drug therapy; Z98.890 Other specified postprocedural states; Z87.891 Personal history of nicotine dependence; Z88.2 Allergy status to sulfonamides; Z88.8 Allergy status to other drugs, medicaments and biological substances
CPT/HCPCS: 62323; J1030; J1040; Q9965

== ENCOUNTER → 2020-05-14 | Outpatient (CLI) | payer MEDICARE, BC ==
[~2020-05-14] MED LIST changes: +BUPIVACAINE MPF 0.25% 10 ML VIAL. ONE; -BUPR100T7 PO; -HYDR-2759 PO
--- NOTE | 2020-05-14 09:58 | PDOC ---
Progress Note - Pain Clinic Date of Service: DOS: DATE: 05/14/20 TIME: 09:53 Diagnosis: Dx: Lumbar radiculopathy with lumbar degenerative disease and lumbar spinal stenosis History or Present Illness: HPI: 75-year-old female returns in follow-up status post lumbar epidural steroid injection x1. Patient reports no significant decrease in pain in the low back and the left lower extremity still significant pain in the posterior gluteus radiating to left posterior thigh lateral thigh anterior thigh medial thigh medial lower leg and posterior lower leg. Patient ports is worse with walking standing changing positions difficulty with sleeping sometimes but not every night does awaken her from sleep. Patient rates her pain is 8 on scale 10 is worse over the past week 5 on average for its least is a 6 today patient ports is burning radiating in the low back and left lower extremity as noted. Patient reports no new motor or sensory deficits no new bowel or bladder incontinence or other complaints. Patient continues with physical therapy which she reports does help significantly at least temporarily to decrease the pain and has been going to this at least twice a week. Physical Exam: VS: Pressure is 147/71 pulse 18 temperature 90.4 F weight is 115 pounds PE: PHYSICAL EXAMINATION: GENERAL: The patient is awake, alert, oriented, appropriate, very pleasant demeanor HEENT: Shows normocephalic, atraumatic. Extraocular movements are intact and symmetrical. NECK: Shows anterior throat supple without palpable lymphadenopathy noted. Swallow reflex symmetrical. CHEST: Shows normal on inspection. Breath sounds are clear bilaterally. HEART: Shows S1, S2 clear. No murmurs auscultated. ABDOMEN: Soft, nontender, nondistended, flat. No palpable organomegaly is noted. BACK: Shows spine grossly in the midline. Normal-appearing cervical lordotic curvature. There is slightly increased thoracic kyphosis, some minor flattening of the lumbar lordotic curvature. Lumbar paraspinous muscles show symmetrical on inspection, on palpation shows some moderate tenderness diffusely throughout the upper, middle and lower distribution of the paraspinous muscles, but without specific trigger points, without radiation of pain. The patient has good rotati onal motion of the lumbar spine, both laterally as well as extension and flexion without significant difficulty. EXTREMITIES: Lower extremities show deep tendon reflexes 2+ in the patellar and tendo calcaneus tendons. Motor exam is 4 on a scale of 5 with right dorsiflexion, extension, quadriceps and hamstring flexion and 4/5 on the left. Peripheral pulses are 1+ posterior tibial. No peripheral edema is noted bilaterally. Lower extremities are warm and dry to touch, equal in color and appearance. SKIN: Shows warm and dry, good turgor. No edema. No sores, rashes or bruising throughout. Procedure: Procedure: Options were discussed with the patient. Patient's old chart reviews her current medication regimen updated current review of systems updated today as well. We will proceed with a left lumbar transforaminal injection at theL4- 5 level using C-arm fluoroscopic guidance. Risks were discussed including but not limited to: Bleeding, infection, possibility of epidural hematoma and subsequent neurological compromise, dural puncture, headaches, spinal cord and/or nerve damage, side effects of steroid medication, potential injection into the vertebral artery at that level with permanent ischemic damage as well as poor results regarding pain control. Patient understands and wished to proceed. Medication Injected: Med Injected: Under sterile prep and drape patient was placed in prone position using C-arm fluoroscopic guidance to identify the L4-5 distribution oblique and slightly cephalad angled C arm. The left L4-5 target was identified and using lidocaine for anesthetizing the skin 22-gauge Jermaine pencil point needle was then used to enter the skin and into the subcutaneous tissues using direct C-arm fluoroscopic guidance to guide the needle into the transforaminal aspect of the left L4-5 vertebrae this was confirmed with lateral views showing the needle tip in the superior aspect of the paravertebral region. Aspiration was noted to be negative, -1.5 cc of contrast was then injected with good spread both medially into the epidural space as well as laterally along the nerve root without uptake and without distribution and uptake on digital subtraction. At this time, a solution containing 2 cc of 0.25% bupivacaine and 80 mg of Depo-Medrol was then injected. Needle was withdrawn and sterile bandage was applied. Patient tolerated procedure well had no immediate complications. Condition at Discharge: Condition at Discharge: Condition at discharge stable, patient alert procedure well and had no complications. ISA PETTIT MD May 14, 2020 09:58
== END | disposition home or self-care (01) ==
LOC: PNCL 09:14
PROVIDERS: ATTEND Anesthesiology
DX: M51.16 Intervertebral disc disorders with radiculopathy, lumbar region (principal); M48.061 Spinal stenosis, lumbar region without neurogenic claudication; I10 Essential (primary) hypertension; E78.00 Pure hypercholesterolemia, unspecified; K21.9 Gastro-esophageal reflux disease without esophagitis; M19.90 Unspecified osteoarthritis, unspecified site; E03.9 Hypothyroidism, unspecified; F41.9 Anxiety disorder, unspecified; Z87.891 Personal history of nicotine dependence; Z79.899 Other long term (current) drug therapy; Z98.890 Other specified postprocedural states; Z88.8 Allergy status to other drugs, medicaments and biological substances
CPT/HCPCS: 64483; J1040; J3490; Q9965; J1030

== ENCOUNTER → 2020-06-14 | Outpatient (CLI) | payer MEDICARE, BC ==
[~2020-06-14] MED LIST changes: -BUPIVACAINE MPF 0.25% 10 ML VIAL. ONE; +BUPR100T7 PO; +HYDR-2759 PO; -IOHEXOL 180 MG/ML 10 ML VIAL. ONE; -methylPREDNISolone ACETATE 40 MG/ML VIAL. ONE; -methylPREDNISolone ACETATE 80 MG/ML VIAL. ONE
--- NOTE | 2020-06-14 10:23 | PDOC ---
Progress Note - Pain Clinic Date of Service: DOS: DATE: 06/14/20 TIME: 10:19 Diagnosis: Dx: Lumbar radiculopathy with lumbar degenerative disc disease and lumbar spinal stenosis Left shoulder joint pain with osteoarthritis History or Present Illness: HPI: 75-year-old female returns follow-up status post lumbar epidural steroid injection and left L5 transforaminal injection. Patient which left leg is doing much better almost no pain in the left leg but the low back still has about 50% of pain remaining. Patient reports no new motor or sensory deficits no new bowel or bladder incontinence still significant pain in the low back and occasionally to the left leg but doing much better with the leg itself. Patient reports he is been taking hydrocodone at 5 mg which we have been prescribing without side effects and this helps and she does not use these every day. Patient reports the pain is a 7-8 on scale 10 is worse over the past week 6-7 on average 4-500 least and is a 6 today patient ports aching and tight burning at times in the low back and sometimes in the left lower extremity. Patient reports no new motor or sensory deficits reports generally does not awaken from sleep at night but occasionally will. Patient reports no new bowel or bladder incontinence or other complaints. Patient reports no side effects with her medication as well. Physical Exam: VS: Pressure is 130/69 pulse 88 respirations 16 temperature 97.8 was Fahrenheit weight is 115 pounds PE: PHYSICAL EXAMINATION: GENERAL: The patient is awake, alert, oriented, appropriate, very pleasant demeanor HEENT: Shows normocephalic, atraumatic. Extraocular movements are intact and symmetrical. Oral cavity: Mucous membranes moist and pink. Dentition is intact. NECK: Shows anterior throat supple without palpable lymphadenopathy noted. Swallow reflex symmetrical. CHEST: Shows normal on inspection. Breath sounds are clear bilaterally, no rales or rhonchi bilaterally. HEART: Shows S1, S2 clear. No murmurs auscultated. ABDOMEN: Soft, nontender, nondistended, flat. No palpable organomegaly is noted. BACK: Shows spine grossly in the midline. Normal-appearing cervical lordotic curvature. There is slightly increased thoracic kyphosis, some minor flattening of the lumbar lordotic curvature. Lumbar paraspinous muscles show symmetrical on inspection, on palpation shows some moderate tenderness diffusely throughout the upper, middle and lower distribution of the paraspinous muscles without specific trigger points, without radiation of pain. The patient has good rotational motion of the lumbar spine, both laterally as well as extension and flexion without significant difficulty. EXTREMITIES: Lower extremities show deep tendon reflexes 2+ in the patellar and tendo calcaneus tendons. Motor exam is 4 on a scale of 5 with right dorsiflexion, extension, quadriceps and hamstring flexion and 4/5 on the left. Peripheral pulses are 1+ posterior tibial. No peripheral edema is noted bilaterally. Lower extremities are warm and dry to touch, equal in color and appearance. SKIN: Shows warm and dry, good turgor. No edema. No sores, rashes or bruising throughout. Procedure: Procedure: Options discussed with patient. Patient chart reviews her current medication regimen updated current review of systems updated today as well. We will hold on further injections at this time as her leg is doing much better and physical therapy will be renewed as patient does very well with this and has been very consistent with doing the physical therapy and doing the home exercises which have been very helpful. Also will renew patient's narcotic contract as well as urinalysis today as part of routine screening and will repeat prescribe hydrocodone 5 mg with instructions side effects aware of discussed. Patient had appropriate K tracts reporting as well I will refill this for a 1 month period. Medication Injected: Med Injected: None Condition at Discharge: Condition at Discharge: Condition at discharge stable. ISA PETTIT MD Jun 14, 2020 10:22
== END | disposition home or self-care (01) ==
LOC: PNCL 09:49
PROVIDERS: ATTEND Anesthesiology
DX: M51.16 Intervertebral disc disorders with radiculopathy, lumbar region (principal); M48.061 Spinal stenosis, lumbar region without neurogenic claudication; M19.012 Primary osteoarthritis, left shoulder; E78.00 Pure hypercholesterolemia, unspecified; I10 Essential (primary) hypertension; K21.9 Gastro-esophageal reflux disease without esophagitis; E03.9 Hypothyroidism, unspecified; F32.9 Major depressive disorder, single episode, unspecified; Z79.899 Other long term (current) drug therapy; Z98.890 Other specified postprocedural states; Z87.891 Personal history of nicotine dependence; Z88.8 Allergy status to other drugs, medicaments and biological substances
CPT/HCPCS: G0463

== ENCOUNTER → 2020-08-09 | Outpatient (CLI) | payer MEDICARE, BC ==
--- NOTE | 2020-08-09 10:16 | PDOC ---
Progress Note - Pain Clinic Date of Service: DOS: DATE: 08/09/20 TIME: 10:13 Diagnosis: Dx: Lumbar radiculopathy with lumbar degenerative disease lumbar spinal stenosis Left shoulder joint pain with osteoarthritis History or Present Illness: HPI: 75-year-old female returns to follow-up status post medication management hydrocodone and lumbar epidural steroid injection as well as transforaminal inj ections. Patient reports that the injections have been short-lived only few days to a week at the most and she is doing very well with the hydrocodone 5mg over the past several months patient reports no significant side effects with the medication controls her pain by about 75 to 80% patient reports while the injections helped her very temporary usually less than a week. Patient reports the pain is a 7 on scale 10 is worse over the past week for an average 3 its least is a 4 today patient reports is burning and aching in the low back dull some rating to left lower extremity posterior gluteus lateral thigh anterior thigh medial thigh and the left knee. Patient reports no new motor or sensory deficits no bowel or bladder incontinence or other complaints. Physical Exam: VS: Blood pressure is 1/72 pulse 84 respirations 18 temperature 98.3 F height is 5 feet 4 inches weight is 112 pounds PE: PHYSICAL EXAMINATION: GENERAL: The patient is awake, alert, oriented, appropriate, very pleasant demeanor HEENT: Shows normocephalic, atraumatic. Extraocular movements are intact and symmetrical. Oral cavity: Mucous membranes moist and pink. Dentition is intact. NECK: Shows anterior throat supple without palpable lymphadenopathy noted. Swallow reflex symmetrical. CHEST: Shows normal on inspection. Breath sounds are clear bilaterally, no r ales or rhonchi. HEART: Shows S1, S2 clear. No murmurs auscultated. ABDOMEN: Soft, nontender, nondistended, flat. No palpable organomegaly is noted. BACK: Shows spine grossly in the midline. Normal-appearing cervical lordotic curvature. There is slightly increased thoracic kyphosis, some minor flattening of the lumbar lordotic curvature. Lumbar paraspinous muscles show symmetrical on inspection, on palpation shows some moderate tenderness diffusely throughout the upper, middle and lower distribution of the paraspinous muscles without specific trigger points, without radiation of pain. The patient has good rotational motion of the lumbar spine, both laterally as well as extension and flexion without significant difficulty. EXTREMITIES: Lower extremities show deep tendon reflexes 2 in the patellar and tendo calcaneus tendons. Motor exam is 4 on a scale of 5 with right dorsifl exion, extension, quadriceps and hamstring flexion and 4/5 on the left. Peripheral pulses are 1+ posterior tibial. No peripheral edema is noted bilaterally. Lower extremities are warm and dry to touch, equal in color and appearance. SKIN: Shows warm and dry, good turgor. No edema. No sores, rashes or bruising throughout. Procedure: Procedure: Options were discussed with the patient. Patient chart reviews her current medication regimen updated current review of systems updated today as well. We will refill patient's medication hydrocodone 5 mg with instructions side effects be aware of for 2-month period. Patient has had appropriate K tracks report as well as appropriate urinalyses to date. Patient instructions well side effects aware of each of medications and will follow up in approximate 2 months or sooner if necessary. Medication Injected: Med Injected: None Condition at Discharge: Condition at Discharge: Condition at discharge is stable. ISA PETTIT MD August 09, 2020 10:16
== END | disposition home or self-care (01) ==
LOC: PNCL 09:41
PROVIDERS: ATTEND Anesthesiology
DX: M51.16 Intervertebral disc disorders with radiculopathy, lumbar region (principal); M48.061 Spinal stenosis, lumbar region without neurogenic claudication; M19.012 Primary osteoarthritis, left shoulder; I10 Essential (primary) hypertension; E78.00 Pure hypercholesterolemia, unspecified; K21.9 Gastro-esophageal reflux disease without esophagitis; E03.9 Hypothyroidism, unspecified; F32.9 Major depressive disorder, single episode, unspecified; Z87.891 Personal history of nicotine dependence; Z79.899 Other long term (current) drug therapy; Z98.890 Other specified postprocedural states; Z88.8 Allergy status to other drugs, medicaments and biological substances
CPT/HCPCS: G0463

== ENCOUNTER → 2020-10-04 | Outpatient (CLI) | payer MEDICARE, BC ==
[~2020-10-04] MED LIST changes: +HYDR-2765 PO
--- NOTE | 2020-10-04 09:41 | PDOC ---
Progress Note - Pain Clinic Date of Service: DOS: DATE: 10/04/20 TIME: 09:37 Diagnosis: Dx: Lumbar radiculopathy with lumbar degenerative disc disease lumbar spinal stenosis Left shoulder joint pain with osteoarthritis History or Present Illness: HPI: 75-year-old female returns for follow-up status post left transforaminal injections L4-5 most recently April 2020 and medication management with hydrocodone most recently August 09, 2020. Patient ports doing fairly well with this but the medication is not decreasing the pain significantly patient reports she can get a similar decrease in pain with 8 tablets of Advil but it upsets her stomach fairly significant patient ports pain the low back rating the left lower extremity posterior gluteus posterior lateral thigh anterior thigh medial thigh medial lower leg patient was aching burning stabbing radiating in the left leg worse with walking standing better with sitting or laying down generally does not awaken her from sleep at night patient reports the pain is a 9 on scale 10 is worse over the past week 6 on average 3 at its least is a 5 patient reports her medications not causing any side effects is not decreasing the pain significantly. Patient reports that her left shoulder aching as well but is manageable and the hydrocodone does help that slightly more the back and the leg. Physical Exam: VS: Blood pressure is 140/68 pulse 84 respirations 18 temperature 98.6 F height is 5 feet 4 inches weight is 116 pounds PE: PHYSICAL EXAMINATION: GENERAL: The patient is awake, alert, oriented, appropriate, very pleasant in demeanor. HEENT: Shows normocephalic, atraumatic. Extraocular movements are intact and symmetrical. Oral cavity: Mucous membranes moist and pink. NECK: Shows anterior throat supple without palpable lymphadenopathy noted. Swallow reflex symmetrical. CHEST: Shows normal on inspection. Breath sounds are clear bilaterally, distant but no rales or. HEART: Shows S1, S2 clear. No murmurs auscultated. ABDOMEN: Soft, nontender, nondistended, flat. BACK: Shows spine grossly in the midline. Normal-appearing cervical lordotic curvature. There is slightly increased thoracic kyphosis, some minor flattening of the lumbar lordotic curvature. Lumbar paraspinous muscles show symmetrical on inspection, on palpation shows some moderate tenderness diffusely throughout the upper, middle and lower distribution of the paraspinous muscles without specific trigger points, without radiation of pain. The patient has good rotational motion of the lumbar spine, both laterally as well as extension and flexion without significant difficulty. EXTREMITIES: Lower extremities show deep tendon reflexes 2+ in the patellar and tendo calcaneus tendons. Motor exam is 4 on a scale of 5 with right do rsiflexion, extension, quadriceps and hamstring flexion and 4/5 on the left. Peripheral pulses are 1 posterior tibial. No peripheral edema is noted bilaterally. Lower extremities are warm and dry. SKIN: Shows warm and dry, good turgor. No edema. No sores, rashes or bruising throughout. Procedure: Procedure: Options were discussed with the patient. Patient's old chart was reviewed his current medication regimen updated current review of systems updated today as well. We will refill patient's hydrocodone at 7.5 mg electronically prescribed to [facility]. Patient was given instructions well side effects beware with the medication. Also will add new medication of meloxicam 15 mg daily. Patient given instructions as well as side effects aware of each of the medications. She will follow up in approximately 4 weeks as scheduled. Medication Injected: Med Injected: None Condition at Discharge: Condition at Discharge: Condition at discharge is stable. ISA PETTIT MD Oct 04, 2020 09:41
== END | disposition home or self-care (01) ==
LOC: PNCL 09:15
PROVIDERS: ATTEND Anesthesiology
DX: M51.16 Intervertebral disc disorders with radiculopathy, lumbar region (principal); M48.061 Spinal stenosis, lumbar region without neurogenic claudication; M19.012 Primary osteoarthritis, left shoulder; I10 Essential (primary) hypertension; E78.00 Pure hypercholesterolemia, unspecified; K21.9 Gastro-esophageal reflux disease without esophagitis; E03.9 Hypothyroidism, unspecified; F32.9 Major depressive disorder, single episode, unspecified; Z87.891 Personal history of nicotine dependence; Z79.899 Other long term (current) drug therapy; Z98.890 Other specified postprocedural states; Z88.8 Allergy status to other drugs, medicaments and biological substances
CPT/HCPCS: 99212; G0463

== ENCOUNTER 2020-11-18 14:25 | Emergency (ER) | payer MEDICARE, BC ==
[~2020-11-18] VITALS: Ht 167.6 cm; Wt 63.6 kg
--- NOTE | 2020-11-18 15:02 | ED.ADGEN ---
Past Medical History Past Medical History: GERD, High Cholesterol, Hypothyroid, Migraines Additional Past Medical Histor: thyroid disease Past Surgical History: Tonsillectomy Additional Past Surgical Histo: THYROIDECTOMY, SHOULDERS X3 Smoking Status: Former Smoker Alcohol Use: None Drug Use: None General Adult EDM: Chief Complaint: OTHER COMPLAINTS HPI: HPI: Patient is a 75-year-old female who arrives ambulatory to the emergency department at the request of her primary care physician for evaluation of a possible stroke. Patient states over the past 3 months she has had expressive aphasia. Patient states this has occurred intermittently whereby she wants to say something and has trouble finding the words in order to do so. The patient reports she did not tell her primary care physician about this and in her request to obtain speech therapy he wanted her evaluated for a new event. She denies any sensory or motor changes. She further denies any headaches, memory changes or illnesses otherwise. She is awake, alert and nontoxic-appearing. Review of Systems: Review of Systems: Constitutional: Denies fever or chills. [] Eyes: Denies change in visual acuity. [] HENT: Denies nasal congestion or sore throat. [] Respiratory: Denies cough or shortness of breath. [] Cardiovascular: Denies chest pain or edema. [] GI: Denies abdominal pain, nausea, vomiting, bloody stools or diarrhea. [] : Denies dysuria. [] Musculoskeletal: Denies back pain or joint pain. [] Integument: Denies rash. [] Neurologic: Changes in speech patterns. Denies headache, focal weakness or sensory changes. [] Endocrine: Denies polyuria or polydipsia. [] Lymphatic: Denies swollen glands. [] Psychiatric: Denies depression or anxiety. [] Allergies: Allergies: Allergies Coded Allergies Type Severity Reaction Last Updated Verified No Known Medication Allergies Allergy Unknown 10/06/19 Yes NSAIDS (Non-Steroidal Anti-Inflamma Adverse Reaction Intermediate "they upset my GERD" 10/06/19 Yes prednisone Adverse Reaction Intermediate Nausea and Vomiting 10/06/19 Yes Physical Exam: PE: Constitutional: Well developed, well nourished, no acute distress, non-toxic appearance. [] HENT: Normocephalic, atraumatic, bilateral external ears normal, oropharynx moist, no oral exudates, nose normal. [] Eyes: PERRLA, EOMI, conjunctiva normal, no discharge. [] Neck: Normal range of motion, no tenderness, supple, no stridor. [] Cardiovascular:Heart rate regular rhythm, no murmur [] Lungs & Thorax: Bilateral breath sounds clear to auscultation [] Abdomen: Bowel sounds normal, soft, no tenderness, no masses, no pulsatile masses. [] Skin: Warm, dry, no erythema, no rash. [] Back: No tenderness, no CVA tenderness. [] Extremities: No tenderness, no cyanosis, no clubbing, ROM intact, no edema. [] Neurologic: Alert and oriented X 3, normal motor function, normal sensory function, no focal deficits noted. [] Psychologic: Affect normal, judgement normal, mood normal. [] Current Patient Data: Labs: Laboratory Tests Test 11/18/20 15:08 11/18/20 15:22 Glucose (Fingerstick) 104 mg/dL (70-99) H White Blood Count 7.9 x10^3/uL (4.0-11.0) Red Blood Count 3.48 x10^6/uL (3.50-5.40) L Hemoglobin 10.8 g/dL (12.0-15.5) L Hematocrit 31.7 % (36.0-47.0) L Mean Corpuscular Volume 91 fL (79-100) Mean Corpuscular Hemoglobin 31 pg (25-35) Mean Corpuscular Hemoglobin Concent 34 g/dL (31-37) Red Cell Distribution Width 13.2 % (11.5-14.5) Platelet Count 308 x10^3/uL (140-400) Neutrophils (%) (Auto) 63 % (31-73) Lymphocytes (%) (Auto) 20 % (24-48) L Monocytes (%) (Auto) 8 % (0-9) Eosinophils (%) (Auto) 8 % (0-3) H Basophils (%) (Auto) 1 % (0-3) Neutrophils # (Auto) 5.0 x10^3/uL (1.8-7.7) Lymphocytes # (Auto) 1.6 x10^3/uL (1.0-4.8) Monocytes # (Auto) 0.6 x10^3/uL (0.0-1.1) Eosinophils # (Auto) 0.6 x10^3/uL (0.0-0.7) Basophils # (Auto) 0.1 x10^3/uL (0.0-0.2) Sodium Level 143 mmol/L (136-145) Potassium Level 3.7 mmol/L (3.5-5.1) Chloride Level 105 mmol/L (98-107) Carbon Dioxide Level 28 mmol/L (21-32) Anion Gap 10 (6-14) Blood Urea Nitrogen 18 mg/dL (7-20) Creatinine 1.0 mg/dL (0.6-1.0) Estimated GFR (Cockcroft-Gault) 54.2 Glucose Level 94 mg/dL (70-99) Calcium Level 8.8 mg/dL (8.5-10.1) Troponin I Quantitative < 0.017 ng/mL (0.000-0.055) Laboratory Tests 11/18/20 15:22 Laboratory Tests 11/18/20 15:22 Vital Signs: Vital Signs Date Time Temp Pulse Resp B/P (MAP) Pulse Ox O2 Delivery O2 Flow Rate FiO2 11/18/20 14:42 98.4 85 16 166/79 97 Room Air 98.4 EKG: EKG: EKG was obtained at 1504 hrs. and reveals a normal sinus rhythm with a ventricular rate of 74 bpm. There is left axis deviation present. There are no acute ST/T wave changes to denote ischemia. [] Heart Score: C/O Chest Pain: No Risk Factors: Risk Factors: DM, Current or recent (<one month) smoker, HTN, HLP, family history of CAD, obesity. Risk Scores: Score 0 - 3: 2.5% MACE over next 6 weeks - Discharge Home Score 4 - 6: 20.3% MACE over next 6 weeks - Admit for Clinical Observation Score 7 - 10: 72.7% MACE over next 6 weeks - Early Invasive Strategies Radiology/Procedures: Radiology/Procedures: [] Impression: [facility] [address] [place] [address] IMAGING REPORT Signed PATIENT: CARLOS MANUEL DOMINGO AACCOUNT: [id number] : 1945 LOCATION: ER AGE: 75 SEX: F EXAM STATUS: REG ER ORD. PHYSICIAN: ALMA ROSA PEREZ DO REASON: Expressive aphasia PROCEDURE: CT HEAD WO CONTRAST CT Head without contrast 11/18/2020 3:09 PM Indication: Reason: Expressive aphasia / Spl. Instructions: / History: Comparison: None available Findings: No evidence of acute intracranial hemorrhage is identified. There is extensive periventricular deep white matter hypoattenuation bilaterally.. Bilateral frontal areas of encephalomalacia are seen. This could be from prior infarcts, though remote trauma can have this appearance. No evidence of subacute territorial infarct is identified. Note that CT is limited for the evaluation of acute ischemia. If there is clinical concern for acute or subacute ischemia, MRI offers more sensitive evaluation. There is no acute appearing mass effect or midline shift. The ventricles and basilar cisterns have a expected configuration given aforementioned changes. No acute osseous abnormality is identified. IMPRESSION: 1. No evidence of acute intracranial hemorrhage 2. Extensive periventricular deep white matter hypoattenuation which while nonspecific most commonly reflects chronic small vessel disease 3. Bifrontal encephalomalacia possibly from prior infarcts or remote trauma 4. If there is continued clinical concern for acute ischemia, consider MRI for further evaluation CT DOSING PQRS STATEMENT: One or more of the following individualized dose reduction techniques were utilized for this examination: 1. Automated exposure control 2. Adjustment of the mA and/or kV according to patient size 3. Use of iterative reconstruction technique Electronically signed by: Jl Haro MD (11/18/2020 3:22 PM) [id number] DICTATED and SIGNED BY: JL HARO MD DATE: 11/18/20 [id number] 0 Course & Med Decision Making: Course & Med Decision Making Pertinent Labs and Imaging studies reviewed. (See chart for details) The patient remains awake, alert and in no acute distress. I have not detected any ongoing speech irregularities as reported by the patient. It is very po ssible the patient may have had a minor TIA somewhere within the last 3 months. Nonetheless the patient does not demonstrate any acute injury to her brain today. I have advised that she return to her family physician for MRI of her brain for further evaluation of a possible injury. Should the patient have any new neurological change of advised she return to the emergency department. The patient understands and has agreed to do so. She is nontoxic-appearing and neurologically intact. She is stable for discharge. Amaon Disclaimer: Antelmo Disclaimer: This electronic medical record was generated, in whole or in part, using a voice recognition dictation system. Departure Departure Impression: Primary Impression: Speech and language deficits Disposition: 01 HOME / SELF CARE / HOMELESS Condition: GOOD Referrals: JONATHAN ENG MD (PCP) Patient Instructions: Aphasia ALMA ROSA PEREZ DO Nov 18, 2020 15:02
--- NOTE | 2020-11-18 15:25 | RAD ---
CT Head without contrast 11/18/2020 3:09 PM Indication: Reason: Expressive aphasia / Spl. Instructions: / History: Comparison: None available Findings: No evidence of acute intracranial hemorrhage is identified. There is extensive periventricu lar deep white matter hypoattenuation bilaterally.. Bilateral frontal areas of encephalomalacia are s een. This could be from prior infarcts, though remote trauma can have this appearance. No evidence of subacute territorial infarct is identified. Note that CT is limited for the evaluation of acute isch emia. If there is clinical concern for acute or subacute ischemia, MRI offers more sensitive evaluati on. There is no acute appearing mass effect or midline shift. The ventricles and basilar cisterns hav e a expected configuration given aforementioned changes. No acute osseous abnormality is identified. IMPRESSION: 1. No evidence of acute intracranial hemorrhage 2. Extensive periventricular deep white matter hypoattenuation which while nonspecific most commonly reflects chronic small vessel disease 3. Bifrontal encephalomalacia possibly from prior infarcts or remote trauma 4. If there is continued clinical concern for acute ischemia, consider MRI for further evaluation CT DOSING PQRS STATEMENT: One or more of the following individualized dose reduction techniques were utilized for this examinat ion: 1. Automated exposure control 2. Adjustment of the mA and/or kV according to patient size 3. Use of iterative reconstruction technique Electronically signed by: Jl Lama MD (11/18/2020 3:22 PM) [id number]
[2020-11-18 15:42] LABS: BASO # 0.1 x10^3/uL (0.0-0.2); BASO % 1 % (0-3); EOS # 0.6 x10^3/uL (0.0-0.7); EOS % 8 % (0-3); HEMATOCRIT 31.7 % (36.0-47.0); HEMOGLOBIN 10.8 g/dL (12.0-15.5); LYMPH # 1.6 x10^3/uL (1.0-4.8); LYMPH % 20 % (24-48); MEAN CORPUSCULAR HEMOGLOBIN 31 pg (25-35); MEAN CORPUSCULAR HGB CONC 34 g/dL (31-37); MEAN CORPUSCULAR VOLUME 91 fL (79-100); MONO # 0.6 x10^3/uL (0.0-1.1); MONO % 8 % (0-9); NEUT % 63 % (31-73); PLATELET COUNT 308 x10^3/uL (140-400); RED BLOOD COUNT 3.48 x10^6/uL (3.50-5.40); RED CELL DISTRIBUTION WIDTH 13.2 % (11.5-14.5); WHITE BLOOD COUNT 7.9 x10^3/uL (4.0-11.0)
[2020-11-18 15:54] LABS: CALCIUM 8.8 mg/dL (8.5-10.1); GFR 54.2; POTASSIUM 3.7 mmol/L (3.5-5.1)
[2020-11-18 16:39] VITALS: BP 143/67
== END 2020-11-18 16:35 | disposition home or self-care (01) ==
LOC: ER 14:25
DX: F80.2 Mixed receptive-expressive language disorder (principal); K21.9 Gastro-esophageal reflux disease without esophagitis; E78.00 Pure hypercholesterolemia, unspecified; E03.9 Hypothyroidism, unspecified; G43.909 Migraine, unspecified, not intractable, without status migrainosus; Z88.6 Allergy status to analgesic agent; Z88.8 Allergy status to other drugs, medicaments and biological substances
CPT/HCPCS: 36415; 70450; 80048; 82962; 84484; 85025; 93005; 99285

== ENCOUNTER → 2020-11-26 | Outpatient (CLI) | payer MEDICARE, BC ==
[2019-10-07 11:00] VITALS: BP_SYST 143
[2020-11-18 16:39] VITALS: BP_DIAS 67
--- NOTE | 2020-11-26 09:55 | PDOC ---
Progress Note - Pain Clinic Date of Service: DOS: DATE: 11/26/20 TIME: 09:52 Diagnosis: Dx: Lumbar radiculopathy with lumbar degenerative disease and lumbar spinal stenosis Left shoulder joint pain with osteoarthritis Left knee joint pain with osteoarthritis History or Present Illness: HPI: 75-year-old female returns for follow-up status post medication management with hydrocodone 7.5 mg as we increase this from 5 on her last visit patient reports doing much better with better control of pain in her low back and left leg al though her knee is still significantly painful her shoulder is doing better patient reports no side effect with medication she is increase her activity with greater ease and comfort sleeping better at night still only about 5 to 6 hours at a time but better than she was patient reports no difficulty with medication no itching headaches nausea constipation or other complaints patient reports the pain in the back and legs dull and tingling also aching in the left knee patient rates her pain an 8 on scale 10 is worse over the past week 6 on average 3 at its least and is a 3 today. Patient reports no new motor or sensory deficits or other complaints. We had discussed anti-inflammatory on her last visit however this was not ordered for her and we will add new medication today of meloxicam patient is given instructions side effects aware with the each of the medications. Patient has had appropriate K tracks reporting as well as appropriate urinalyses to date. Physical Exam: VS: Blood pressure is 130/63 pulse 79 respirations 18 temperature 98.2 F weight is 113 pounds PE: PHYSICAL EXAMINATION: GENERAL: The patient is awake, alert, oriented, appropriate, very pleasant in demeanor HEENT: Shows normocephalic, atraumatic. Extraocular movements are intact and symmetrical. Oral cavity: Mucous membranes moist and pink. Dentition is intac t. NECK: Shows anterior throat supple without palpable lymphadenopathy noted. Swallow reflex symmetrical. CHEST: Shows normal on inspection. Breath sounds are clear bilaterally, no rales or rhonchi. HEART: Shows S1, S2 clear. No murmurs auscultated. ABDOMEN: Soft, nontender, nondistended. No palpable organomegaly is noted. BACK: Shows spine grossly in the midline. Normal-appearing cervical lordotic curvature. There is slightly increased thoracic kyphosis, some minor flattening of the lumbar lordotic curvature. Lumbar paraspinous muscles show symmetrical on inspection, on palpation shows some moderate tenderness diffusely throughout the upper, middle and lower distribution of the paraspinous muscles, but without specific trigger points, without radiation of pain. The patient has good rotational motion of the lumbar spine, both laterally as well as extension and flexion without significant difficulty. EXTREMITIES: Lower extremities show deep tendon reflexes 2+ in the patellar and tendo calcaneus tendons. Motor exam is full on a scale of 5 with right dorsiflexion, extension, quadriceps and hamstring flexion and 4/5 on the left. Peripheral pulses are 1+ posterior tibial. New peripheral edema is noted bilaterally. Lower extremities are warm and dry to touch, equal in color and appearance. SKIN: Shows warm and dry, good turgor. No edema. No sores, rashes or bruising throughout. Procedure: Procedure: Options were discussed with the patient. Patient chart was reviewed as her current medication regimen updated current review of systems updated today as well. We will add meloxicam 15 mg daily also refill patient's Lortab 7.5 mg electronically prescribed. Patient was given instructions well side effects aware of each of the medications. Again, patient has had appropriate K tracks report as well as appropriate urinalyses to date and we make this a 1 month refill. Medication Injected: Med Injected: None Condition at Discharge: Condition at Discharge: Condition at discharge is stable. ISA PETTIT MD Nov 26, 2020 09:55
== END | disposition home or self-care (01) ==
LOC: PNCL 09:00
PROVIDERS: ATTEND Anesthesiology
DX: M51.16 Intervertebral disc disorders with radiculopathy, lumbar region (principal); M48.061 Spinal stenosis, lumbar region without neurogenic claudication; M17.12 Unilateral primary osteoarthritis, left knee; M19.012 Primary osteoarthritis, left shoulder; I10 Essential (primary) hypertension; E78.00 Pure hypercholesterolemia, unspecified; E03.9 Hypothyroidism, unspecified; K21.9 Gastro-esophageal reflux disease without esophagitis; F32.9 Major depressive disorder, single episode, unspecified; Z87.891 Personal history of nicotine dependence; Z79.899 Other long term (current) drug therapy; Z98.890 Other specified postprocedural states; Z88.8 Allergy status to other drugs, medicaments and biological substances
CPT/HCPCS: 99212; G0463

== ENCOUNTER → 2020-12-23 | Outpatient (CLI) | payer MEDICARE, BC ==
--- NOTE | 2020-12-23 14:45 | PDOC ---
Progress Note - Pain Clinic Date of Service: DOS: DATE: 12/23/20 TIME: 14:42 Diagnosis: Dx: Lumbar radiculopathy with lumbar degenerative disease lumbar spinal stenosis Left shoulder joint pain with osteoarthritis Left knee joint pain with osteoarthritis History or Present Illness: HPI: Telemedicine visit today with patient identity verified with full name as well as full date of , total time spent: 11 minutes 75-year-old female with telemedicine visit today via telephone requesting a refill of hydrocodone 7.5 mg. Patient reports doing very well with no side effects with medication has had appropriate K tracks report as well as appropriate urinalyses to date. Reports still significant pain in the low back as well as the left shoulder and the left knee but very manageable with hydrocodone at his current level. Patient reports no new motor or sensory deficits no other complaints. Patient will be given new refill to be electronically prescribed, with's instructions as well as side effects beware of discussed with the medication. Patient will follow up in approximately 4 weeks as scheduled. Physical Exam: PE: ISA PETTIT MD Dec 23, 2020 14:45
== END ==
LOC: PNCL 12:10
PROVIDERS: ATTEND Anesthesiology
DX: M51.16 Intervertebral disc disorders with radiculopathy, lumbar region (principal); M48.061 Spinal stenosis, lumbar region without neurogenic claudication; M17.12 Unilateral primary osteoarthritis, left knee; M19.012 Primary osteoarthritis, left shoulder
CPT/HCPCS: 99212; G0463

== ENCOUNTER → 2020-12-30 | Outpatient (CLI) | payer MEDICARE, BC ==
--- NOTE | 2020-12-30 15:37 | KCIC ---
PQRS Compliance Statement: One or more of the following individualized dose reduction techniques were utilized for this examinat ion: 1. Automated exposure control 2. Adjustment of the mA and/or kV according to patient size 3. Use of iterative reconstruction technique CT head without contrast 12/30/2020 3:14 PM INDICATION: Fall, headaches and unsteady gait COMPARISON: CT head 11/18/2020 TECHNIQUE: Multiple axial CT images of the head were obtained from skull base through the vertex with out intravenous contrast. FINDINGS: Head: Ventricles, sulci and basal cisterns are within normal limits. Low-attenuation in the periventricular white matter is suggestive of chronic small vessel ischemic changes. There is encephalomalacia invol ving the inferior right frontal lobe with involvement of the orbital gyri. Remote ischemic changes ar e identified involving the left frontal operculum with encephalomalacia and associated gliosis. There is no hydrocephalus. Rees-white matter differentiation is normal. There is no acute intracranial hem orrhage. There is no mass, mass effect or midline shift. Posterior fossa is normal in appearance. Visualized portions of the orbits are normal. Paranasal sinuses are well aerated. Mastoid air cells a re well aerated. Scalp and calvaria are normal. IMPRESSION: No acute intracranial hemorrhage. Low-attenuation in the periventricular white matter is suggestive of chronic small vessel ischemic ch anges. Findings are not significantly changed since prior examination. Stable encephalomalacia involving the left frontal operculum and right frontal orbital gyri. Electronically signed by: Carolina Ortiz MD (12/30/2020 3:35 PM) [id number]
== END ==
LOC: KCIC CT 15:11
PROVIDERS: ATTEND Family Medicine
DX: S09.90XA Unspecified injury of head, initial encounter (principal); G93.89 Other specified disorders of brain; W19.XXXA Unspecified fall, initial encounter
CPT/HCPCS: 70450

== ENCOUNTER → 2021-01-21 | Outpatient (CLI) | payer MEDICARE, BC ==
[~2021-01-21] MED LIST changes: +POTA-112 PO; -POTA10TA6 PO
--- NOTE | 2021-01-21 09:49 | PDOC ---
Progress Note - Pain Clinic Date of Service: DOS: DATE: 01/21/21 TIME: 09:46 Diagnosis: Dx: Lumbar radiculopathy with lumbar degenerative disease and lumbar spinal stenosis Left shoulder joint pain with osteoarthritis Left knee joint pain with osteoarthritis History or Present Illness: HPI: 75-year-old female returns for follow-up status post medication management with hydrocodone 7.5 mg as well as lumbar transforaminal injections patient reports doing very well her left leg is still has some pain but is very well controlled with the medication and reports about a 80% improvement without significant side effects. Patient reports her pain is an eight on scale 10 is worst over the past week seven on average 10 to 3 days least is a three today patient which is tingling burning dull and shooting in the low back and left leg worse with activity but she is able to moderate that so it is not aggravating to significantly most days. Patient reports he still functioning doing her daily activities try with greater ease and comfort getting around fairly well and sleeping well at night is generally not awaken her from sleep most nights but occasionally will but most nights it is fairly well controlled patient reports no side effects with medications and no bowel or bladder incontinence. Physical Exam: VS: Blood pressure is 143/78 pulse 91 respirations 16 temperature 97.9 F height 5 foot 3 inches weight is 107 pounds PE: PHYSICAL EXAMINATION: GENERAL: The patient is awake, alert, oriented, appropriate, very pleasant in demeanor HEENT: Shows normocephalic, atraumatic. Extraocular movements are intact and s ymmetrical. Oral cavity: Mucous membranes moist and pink. Dentition is intact. NECK: Shows anterior throat supple without palpable lymphadenopathy noted. Swallow reflex symmetrical. CHEST: Shows normal on inspection. Breath sounds are clear bilaterally, distant but no rales or. HEART: Shows S1, S2 clear. No murmurs auscultated. ABDOMEN: Soft, nontender, nondistended. No palpable organomegaly is noted. BACK: Shows spine grossly in the midline. Normal-appearing cervical lordotic curvature. There is increased thoracic kyphosis, some flattening of the lumbar lordotic curvature. Lumbar paraspinous muscles show symmetrical on inspection, on palpation shows some moderate tenderness diffusely throughout the upper, middle and lower distribution of the paraspinous muscles, but without specific trigger points, without radiation of pain. The patient has good rotational motion of the lumbar spine, both laterally as well as extension and flexion without significant difficulty. EXTREMITIES: Lower extremities show deep tendon reflexes 1+ in the patellar and tendo calcaneus tendons. Motor exam is four on a scale of 5 with right dorsiflexion, extension, quadriceps and hamstring flexion and four/5 on the left. Peripheral pulses are one+ posterior tibial. No peripheral edema is noted bilaterally. Lower extremities are warm and dry. SKIN: Shows warm and dry, good turgor. No edema. No sores, rashes or bruising throughout. Procedure: Procedure: Options discussed with patient. Patient's old chart was reviewed as her current medication regimen updated current review of systems updated today as well. We will refill patient's hydrocodone via electronic prescription today 7.5 mg #75 patient was given instructions well side effects aware with the medications. Patient to follow-up in approximate 4 weeks as scheduled. Medication Injected: Med Injected: None Condition at Discharge: Condition at Discharge: Condition at discharge is stable. ISA PETTIT MD Jan 21, 2021 09:49
== END | disposition home or self-care (01) ==
LOC: PNCL 09:13
PROVIDERS: ATTEND Anesthesiology
DX: M51.16 Intervertebral disc disorders with radiculopathy, lumbar region (principal); M48.061 Spinal stenosis, lumbar region without neurogenic claudication; M19.012 Primary osteoarthritis, left shoulder; M17.12 Unilateral primary osteoarthritis, left knee; I10 Essential (primary) hypertension; E78.00 Pure hypercholesterolemia, unspecified; K21.9 Gastro-esophageal reflux disease without esophagitis; E03.9 Hypothyroidism, unspecified; F32.9 Major depressive disorder, single episode, unspecified; Z86.73 Personal history of transient ischemic attack (TIA), and cerebral infarction without residual deficits; Z79.899 Other long term (current) drug therapy; Z98.890 Other specified postprocedural states; Z87.891 Personal history of nicotine dependence; Z88.8 Allergy status to other drugs, medicaments and biological substances
CPT/HCPCS: 99212; G0463

== ENCOUNTER → 2021-02-15 | Outpatient (CLI) | payer MEDICARE, BC ==
--- NOTE | 2021-02-15 17:28 | PDOC ---
Progress Note - Pain Clinic Date of Service: DOS: DATE: 02/15/21 TIME: 17:27 Diagnosis: Dx: Lumbar radiculopathy with lumbar degenerative disease and lumbar spinal stenosis Left shoulder joint pain with osteoarthritis Left knee joint pain with osteoarthritis History or Present Illness: HPI: Telemedicine visit today patient's identity verified with date of as well as full name, total time spent 12 minutes. 76-year-old female via telemedicine visit today requesting medication refill of hydrocodone 7.5 mg. Patient reports he is doing very well with this been a very stable regimen still has some pain in the low back and lower extremities but doi ng much better with the medication and is well controlled without any side effects. Patient has had appropriate K tracks report as well as appropriate urinalyses to date as well. Patient reports still some pain with increased activity but is doing well using some massage techniques as well as stretching techniques application as well as water and hot shower soaking. We will refill patient's medications electronically with instructions side effects aware of discussed with each medication and patient will follow up in approximately 4 weeks as scheduled. Physical Exam: PE: ISA PETTIT MD Feb 15, 2021 17:28
== END | disposition home or self-care (01) ==
LOC: PNCL 09:24
PROVIDERS: ATTEND Anesthesiology
DX: M51.16 Intervertebral disc disorders with radiculopathy, lumbar region (principal); M48.061 Spinal stenosis, lumbar region without neurogenic claudication; M17.12 Unilateral primary osteoarthritis, left knee; M19.012 Primary osteoarthritis, left shoulder; I10 Essential (primary) hypertension; E78.00 Pure hypercholesterolemia, unspecified; E03.9 Hypothyroidism, unspecified; K21.9 Gastro-esophageal reflux disease without esophagitis; F32.9 Major depressive disorder, single episode, unspecified; Z87.891 Personal history of nicotine dependence; Z79.899 Other long term (current) drug therapy; Z98.890 Other specified postprocedural states; Z88.8 Allergy status to other drugs, medicaments and biological substances
CPT/HCPCS: 99212; G0463

== ENCOUNTER → 2021-03-17 | Outpatient (CLI) | payer MEDICARE, BC ==
--- NOTE | 2021-03-17 09:39 | PDOC ---
Progress Note - Pain Clinic Date of Service: DOS: DATE: 03/17/21 TIME: 09:35 Diagnosis: Dx: Lumbar radiculopathy with lumbar degenerative disease and lumbar spinal stenosis Left shoulder joint pain with osteoarthritis Left knee joint pain with osteoarthritis History or Present Illness: HPI: 76-year-old female returns for follow-up status post medication management as well as epidural steroid injections in the past. Patient taking hydrocodone 7.5 mg with good results patient reports about 70 to 75% improvement with the me dications alone without any significant side effects patient reports no constipation no dysphoria euphoria itching nausea or vomiting patient reports her pain is an 8 on scale 10 is worse over the past week 7 on average 3 to [place] is a 3 today in the low back and left lower extremity with some pain radiating dull in the back burning and stabbing in the leg shooting in the leg at times but only with extended standing or activity patient reports she can generally controlled his weight is at a minimum. Patient reports better with sitting or laying down generally not waking from sleep at night most nights. Patient bladder incontinence even increase in activity recently due to some holiday activity and shopping etc. but doing very well with medications no side effects again as noted. Patient will have urinalysis today as part of routine screening also. Physical Exam: VS: Blood pressure is 128/68 pulse 81 respirations 18 temperature 97.8 F height is 5 foot 4 inches weight is 102 pounds. PE: PHYSICAL EXAMINATION: GENERAL: The patient is awake, alert, oriented, appropriate, very pleasant in demeanor HEENT: Shows normocephalic, atraumatic. Extraocular movements are intact and symmetrical. Oral cavity: Mucous membranes moist and pink. Dentition is intact. NECK: Shows anterior throat supple without palpable lymphadenopathy noted. Swallow reflex symmetrical. CHEST: Shows normal on inspection. Breath sounds are clear bilaterally, no rales or rhonchi. HEART: Shows S1, S2 clear. No murmurs auscultated. ABDOMEN: Soft, nontender, nondistended. No palpable organomegaly is noted. BACK: Shows spine grossly in the midline. Normal-appearing cervical lordotic curvature. There is slightly increased thoracic kyphosis, some flattening of the lumbar lordotic curvature. Lumbar paraspinous muscles show symmetrical on inspection, on palpation shows some moderate tenderness diffusely throughout the upper, middle and lower distribution of the paraspinous muscles, but without specific trigger points, without radiation of pain. The patient has good rotational motion of the lumbar spine, both laterally as well as extension and flexion without significant difficulty. No tenderness over the spinous processes, sacrum or sacroiliac regions. EXTREMITIES: Lower extremities show deep tendon reflexes 1+ in the patellar and tendo calcaneus tendons. Motor exam is 4 on a scale of 5 with right dorsiflexion, extension, quadriceps and hamstring flexion and 4/5 on the left. Peripheral pulses are 1+ posterior tibial. No peripheral edema is noted bilaterally. Lower extremities are warm and dry. SKIN: Shows warm and dry, good turgor. No edema. No sores, rashes or bruising throughout. Procedure: Procedure: Options discussed with patient. Patient chart was reviewed as her current medication regimen updated current review of systems updated today as well. We will refill patient's hydrocodone with instructions side effects aware of discussed. Patient again doing very well on very stable regimen has had appropriate K tracks report as well as appropriate urinalyses to date. We will have urinalysis done today as well as part of routine screening. Patient will follow up in approximately 4 weeks as scheduled. Medication Injected: Med Injected: None Condition at Discharge: Condition at Discharge: Condition at discharge stable. ISA PETTIT MD Mar 17, 2021 09:39
== END | disposition home or self-care (01) ==
LOC: PNCL 09:05
PROVIDERS: ATTEND Anesthesiology
DX: M51.16 Intervertebral disc disorders with radiculopathy, lumbar region (principal); M48.061 Spinal stenosis, lumbar region without neurogenic claudication; M19.012 Primary osteoarthritis, left shoulder; M17.12 Unilateral primary osteoarthritis, left knee; I10 Essential (primary) hypertension; E78.00 Pure hypercholesterolemia, unspecified; K21.9 Gastro-esophageal reflux disease without esophagitis; E03.9 Hypothyroidism, unspecified; F32.9 Major depressive disorder, single episode, unspecified; Z87.891 Personal history of nicotine dependence; Z79.899 Other long term (current) drug therapy; Z98.890 Other specified postprocedural states
CPT/HCPCS: 99212; G0463

== ENCOUNTER → 2021-04-08 | Outpatient (CLI) | payer MEDICARE, BC ==
--- NOTE | 2021-04-08 09:05 | PDOC ---
Progress Note - Pain Clinic Date of Service: DOS: DATE: 04/08/21 TIME: 09:03 Diagnosis: Dx: Lumbar radiculopathy with lumbar degenerative disease and lumbar spinal stenosis Left shoulder joint pain with osteoarthritis Knee joint pain with osteoarthritis History or Present Illness: HPI: Telemedicine visit today with patient's identity verified with date of as well as full name, total time spent 11 minutes 76-year-old female via telemedicine visit today requesting refill hydrocodone 7.5 mg patient significant low back pain as well as neck and upper extremity pain patient reports doing very well with the medication however is been on very stable regimen patient has been through epidural steroid injections as well as transforaminal injections with good results in the past as well we discussed the options of repeating those and patient is interested but currently is doing very well with her medication regimen. Patient reports still some pain in the low back especially on the left side in the lower extremity but very manageable with the medication and again without side effects. Patient reports no constipation no itching nausea dysphoria memory issues, etc. Patient is had appropriate K tracks report as well as urinalysis to date as well. We will refill patient's medication hydrocodone 7.5 mg 75 tablets for 30-day supply. Patient was given instructions well side effects beware with the medications. Patient to follow- up in approximate 30 days as scheduled Physical Exam: PE: ISA PETTIT MD Apr 08, 2021 09:05
--- NOTE | 2021-04-08 09:06 | NUR ---
Patient called requesting a refill on meds,reviewed medications verified patient ,verified allergies,and next appointment. patient denies constipation, new medical problems . States her pain level is around a 5-7. Call transferred to Dr Sotelo. [facility] is correct.
== END | disposition home or self-care (01) ==
LOC: PNCL 08:32
PROVIDERS: ATTEND Anesthesiology
DX: M51.16 Intervertebral disc disorders with radiculopathy, lumbar region (principal); M48.061 Spinal stenosis, lumbar region without neurogenic claudication; M19.012 Primary osteoarthritis, left shoulder; M17.9 Osteoarthritis of knee, unspecified; I10 Essential (primary) hypertension; E78.00 Pure hypercholesterolemia, unspecified; E03.9 Hypothyroidism, unspecified; K21.9 Gastro-esophageal reflux disease without esophagitis; F32.9 Major depressive disorder, single episode, unspecified; Z87.891 Personal history of nicotine dependence; Z79.899 Other long term (current) drug therapy; Z98.890 Other specified postprocedural states; Z88.8 Allergy status to other drugs, medicaments and biological substances
CPT/HCPCS: 99212; G0463

== ENCOUNTER → 2021-05-12 | Outpatient (CLI) | payer MEDICARE, BC ==
--- NOTE | 2021-05-12 09:10 | PDOC ---
Progress Note - Pain Clinic Date of Service: DOS: DATE: 05/12/21 TIME: 08:43 Diagnosis: Dx: Lumbar radiculopathy with lumbar degenerative disc disease and lumbar spinal stenosis Left shoulder joint pain with osteoarthritis Left knee joint pain with osteoarthritis History or Present Illness: HPI: 76-year-old female returns for follow-up status post medication management as well as lumbar epidural steroid injections and transforaminal injection approximate 1 year ago patient reports been doing very well with her left leg still has some pain in the lateral thigh anterior thigh as well as the medial lower leg which has been doing some new stretches at home which reportedly helped the pain significantly patient reports still pain in the low back and left leg posterior gluteus and thigh as well as the lateral anterior medial thigh medial lower leg is noted patient reports is very manageable though in with her hydrocodone that she is taking on a very stable regimen is quite tolerable patient reports pain is 8 on scale 10 is worst 3 at its least 3 on average and is a 3 today patient reports that sharp and burning in the low back and left lower extremity with radiation worse with walking standing change positions better with sitting or laying down generally does not awaken her from sleep most nights reports no motor or sensory deficits but some fatigability with the left leg when she is up and around more than about an hour. Patient reports no bowel or bladder incontinence. Patient has no side effects with the medication reports with the medication about 75 to 80% improvement from the medications alone. Patient has had appropriate K tracks report as well as appropriate urinalyses to date. Physical Exam: VS: Blood pressure is 147/75 pulse 90 respirations 18 temperature 98.0 F height is 5 foot 4 inches weight is 100 pounds PE: PHYSICAL EXAMINATION: GENERAL: The patient is awake, alert, oriented, appropriate, very pleasant in demeanor HEENT: Shows normocephalic, atraumatic. Extraocular movements are intact and symmetrical. Oral cavity: Mucous membranes moist and pink NECK: Shows anterior throat supple without palpable lymphadenopathy noted. Swallow reflex symmetrical. CHEST: Shows normal on inspection. Breath sounds are clear bilaterally. HEART: Shows S1, S2 clear. No murmurs auscultated. ABDOMEN: Soft, nontender, nondistended. No palpable organomegaly is noted. No rebound or guarding demonstrated. BACK: Shows spine grossly in the midline. Normal-appearing cervical lordotic curvature. There is moderately increased thoracic kyphosis, some flattening of the lumbar lordotic curvature. Lumbar paraspinous muscles show symmetrical on inspection, on palpation shows some moderate tenderness diffusely throughout the upper, middle and lower distribution of the paraspinous muscles, but without specific trigger points, without radiation of pain. The patient has good rotational motion of the lumbar spine, both laterally as well as extension and flexion without significant difficulty. No tenderness over the spinous processes, sacrum or sacroiliac regions. EXTREMITIES: Lower extremities show deep tendon reflexes 1+ in the patellar and tendo calcaneus tendons. Motor exam is 4 on a scale of 5 with right dorsiflexion, extension, quadriceps and hamstring flexion and 4/5 on the left. Peripheral pulses are 1+ posterior tibial. No peripheral edema is noted bilaterally. Lower extremities are warm and dry to touch, equal in color and appearance. SKIN: Shows warm and dry, good turgor. No edema. No sores, rashes or bruising throughout. Procedure: Procedure: Options were discussed the patient. Patient's chart was reviewed as her current medication regimen updated current review of systems updated today as well. We will refill patient's medication as he has been on a very stable regimen has no significant side effects has had appropriate K tracks report as well as appropriate urinalyses to date. Patient is given instructions well side effects beware with the medication hydrocodone 7.5 mg #75. Patient to follow-up in approximately 30 days as scheduled. Medication Injected: Med Injected: None Condition at Discharge: Condition at Discharge: Condition at discharge is stable. ISA PETTIT MD May 12, 2021 09:10
== END | disposition home or self-care (01) ==
LOC: PNCL 08:03
PROVIDERS: ATTEND Anesthesiology
DX: M51.16 Intervertebral disc disorders with radiculopathy, lumbar region (principal); M48.061 Spinal stenosis, lumbar region without neurogenic claudication; M19.012 Primary osteoarthritis, left shoulder; M17.12 Unilateral primary osteoarthritis, left knee; I10 Essential (primary) hypertension; E78.00 Pure hypercholesterolemia, unspecified; K21.9 Gastro-esophageal reflux disease without esophagitis; E03.9 Hypothyroidism, unspecified; F32.9 Major depressive disorder, single episode, unspecified; Z87.891 Personal history of nicotine dependence; Z79.899 Other long term (current) drug therapy; Z98.890 Other specified postprocedural states; Z88.8 Allergy status to other drugs, medicaments and biological substances
CPT/HCPCS: 99212; G0463

== ENCOUNTER → 2021-06-03 | Outpatient (CLI) | payer MEDICARE, BC ==
[~2021-06-03] MED LIST changes: +ONDA4TAB12 PO; +POLY119P4 PO
--- NOTE | 2021-06-03 12:22 | NUR ---
Patient called requesting a medication refill. Verified patients name,, pharmacy, medications, and next appointment.patient denied any new medical problems,states she is having a little constipation but is ok with it. Denies any new allergies call transferred to Dr Sotelo.
--- NOTE | 2021-06-03 12:29 | PDOC ---
Progress Note - Pain Clinic Date of Service: DOS: DATE: 06/03/21 TIME: 12:27 Diagnosis: Dx: Lumbar radiculopathy with lumbar degenerative disease lumbar spinal stenosis Left shoulder joint pain with osteoarthritis Left knee joint pain with osteoarthritis History or Present Illness: HPI: 76-year-old female via telemedicine visit today with identity verified with full name as well as full date of , total time spent 12 minutes, voice only. Telemedicine visit today with patient requesting a refill of hydrocodone 7.5 mg. Patient reports she is doing very well with this and has a very stable regimen without any significant side effects. Patient reports still some pain in the low back and more in the left lower extremity into the posterior gluteus lateral thigh and anterior thigh but doing a much better with the medications at this time. Patient reports pain is worse with increased activity standing walking for prolonged periods but she is sleeping fairly well at night and overall rates it as about a 70 to 75% improvement with medications alone. Patient has had appropriate K tracks report as well as appropriate urinalyses to date as well. We discussed options and will refill patient's medication for 1 month prescription of hydrocodone 7.5 mg/325 #75. Patient was given instructions well side effects aware with the medication will follow up in approximate 30 days as scheduled. Physical Exam: PE: ISA PETTIT MD Jun 03, 2021 12:29
== END | disposition home or self-care (01) ==
LOC: PNCL 11:19
PROVIDERS: ATTEND Anesthesiology
DX: M51.16 Intervertebral disc disorders with radiculopathy, lumbar region (principal); M19.012 Primary osteoarthritis, left shoulder; M17.12 Unilateral primary osteoarthritis, left knee; M48.061 Spinal stenosis, lumbar region without neurogenic claudication; I10 Essential (primary) hypertension; E78.00 Pure hypercholesterolemia, unspecified; K21.9 Gastro-esophageal reflux disease without esophagitis; E03.9 Hypothyroidism, unspecified; F32.9 Major depressive disorder, single episode, unspecified; Z79.899 Other long term (current) drug therapy; Z98.890 Other specified postprocedural states; Z87.891 Personal history of nicotine dependence; Z88.8 Allergy status to other drugs, medicaments and biological substances
CPT/HCPCS: 99212; G0463

== ENCOUNTER 2021-06-12 20:30 | Emergency (ER) | payer MEDICARE, BC ==
[~2021-06-12] VITALS: Ht 157.5 cm; Wt 46.0 kg
[~2021-06-12 20:30] MED LIST changes: -ONDA4TAB12 PO; -POLY119P4 PO
[2021-06-12] MEDS ORDERED: FAMOTIDINE 20 MG/2 ML VIAL IVP ONE (20:45)
[2021-06-12] MEDS ORDERED: IV NORMAL SALINE 1000ML BAG 1,000 ML IV ONE (20:45)
--- NOTE | 2021-06-12 20:51 | PHYS DOC ---
Past Medical History Past Medical History: GERD, High Cholesterol, Hypothyroid, Migraines Additional Past Medical Histor: thyroid disease Past Surgical History: Tonsillectomy Additional Past Surgical Histo: THYROIDECTOMY, SHOULDERS X3 Smoking Status: Former Smoker Alcohol Use: None Drug Use: None General Adult EDM: Chief Complaint: DIARRHEA HPI: HPI: Patient is a 76 year old female with history of migraine headaches, high cholesterol, acid reflux, presenting to the ED today complaining of diarrhea, symptoms of been going on for 3 days. Patient denies any abdominal pain, nausea, vomiting. Reports trace amount of blood in her stool today. She states she talked to her PCP who recommended a bland diet but this has not improved her symptoms. Review of Systems: Review of Systems: Constitutional: Denies fever or chills. [] Eyes: Denies change in visual acuity. [] HENT: Denies nasal congestion or sore throat. [] Respiratory: Denies cough or shortness of breath. [] Cardiovascular: Denies chest pain or edema. [] GI: Reports diarrhea and some blood in her stool today. Denies abdominal pain, nausea, vomiting : Denies dysuria. [] Musculoskeletal: Denies back pain or joint pain. [] Integument: Denies rash. [] Neurologic: Denies headache, focal weakness or sensory changes. [] Psychiatric: Denies depression or anxiety. [] Heart Score: C/O Chest Pain: N/A Risk Factors: Risk Factors: DM, Current or recent (<one month) smoker, HTN, HLP, family history of CAD, obesity. Risk Scores: Score 0 - 3: 2.5% MACE over next 6 weeks - Discharge Home Score 4 - 6: 20.3% MACE over next 6 weeks - Admit for Clinical Observation Score 7 - 10: 72.7% MACE over next 6 weeks - Early Invasive Strategies Current Medications: Current Medications Medications (Trade) Dose Ordered Sig/Ahmet Start Time Stop Time Status Last Admin Dose Admin Famotidine (Pepcid Vial) 20 mg 1X ONCE 06/12/21 20:45 06/12/21 20:46 DC Sodium Chloride 1,000 ml @ 1,000 mls/hr 1X ONCE 06/12/21 20:45 06/12/21 21:44 Allergies: Allergies: Allergies Coded Allergies Type Severity Reaction Last Updated Verified No Known Medication Allergies Allergy Unknown 10/06/19 Yes NSAIDS (Non-Steroidal Anti-Inflamma Adverse Reaction Intermediate "they upset my GERD" 10/06/19 Yes prednisone Adverse Reaction Intermediate Nausea and Vomiting 10/06/19 Yes Physical Exam: PE: Constitutional: Well developed, well nourished, no acute distress, non-toxic appearance. [] HENT: Normocephalic, atraumatic, bilateral external ears normal, oropharynx moist, no oral exudates, nose normal. [] Eyes: PERRLA, EOMI, conjunctiva normal, no discharge. [] Neck: Normal range of motion, no tenderness, supple, no stridor. [] Cardiovascular:Heart rate regular rhythm, no murmur [] Lungs & Thorax: Bilateral breath sounds clear to auscultation [] Abdomen: Bowel sounds normal, soft, no tenderness, no masses, no pulsatile masses. [] External rectum with no hemorrhoids, slight erythema. Internal rectal exam-ball of stool is palpable on the lower rectum region. Patient could not tolerate d isimpaction Skin: Warm, dry, no erythema, no rash. [] Back: No tenderness, no CVA tenderness. [] Extremities: No tenderness, no cyanosis, no clubbing, ROM intact, no edema. [] Neurologic: Alert and oriented X 3, normal motor function, normal sensory function, no focal deficits noted. [] Psychologic: Affect normal, judgement normal, mood normal. [] EKG: EKG: [] Radiology/Procedures: Radiology/Procedures: []PROCEDURE: CT ABD PELV W/ IV CONTRST ONLY Exam: CT of abdomen and pelvis with contrast INDICATION: Diarrhea TECHNIQUE: Sequential axial images through the abdomen and pelvis obtained following the administration of 60 mL of Isovue-370 IV contrast. Sagittal and coronal reformatted images were reconstructed from the axial data and reviewed. Exposure: One or more of the following in the visualized dose reduction gregory hniques were utilized for this examination: 1. Automated exposure control 2. Adjustment of the MA and/or KV according to patient size 3. Use of iterative of reconstructive technique Comparisons: None FINDINGS: Heart size is normal. No pericardial effusion. Visualized lung bases are clear. No pleural effusion. Numerous cysts noted within the liver. Spleen, and adrenals are unremarkable. There is mild pancreatic ductal dilatation down to level the ampulla. Gallbladder is mildly distended. No perinephric inflammation or hydronephrosis. No renal or ureteral calculi are identified. Bladder is partially distended and not well evaluated. Uterus is not enlarged. No abnormal adnexal mass. Moderate amount stool noted in the colon. Large amount stool noted at the rectum. Appendix is nonidentified. No free intra-abdominal air or fluid. No obstruction. Abdominal aorta has normal course and caliber. Abdominal vasculature is patent. No enlarged intra-abdominal lymph nodes are identified. No suspicious osseous lesions or acute fractures. IMPRESSION: 1. Large stool ball noted at the rectum with diffuse wall thickening. Correlate for stercoral colitis. 2. Mild pancreatic ductal dilatation down to level the ampulla with mild intrahepatic or ductal dilatation. A discrete obstructing lesion is not identified. Correlate with LFTs to determine the need for further evaluation with MRCP/ERCP. Electronically signed by: Emily Patel MD (06/12/2021 10:47 PM) [facility] DICTATED and SIGNED BY: EMILY PATEL MD DATE: 06/12/212237 Course & Med Decision Making: Course & Med Decision Making Pertinent Labs and Imaging studies reviewed. (See chart for details) This a 76-year-old female patient presenting to the ED today with complaints of diarrhea that began 3 days ago. Vitals on arrival to the ED temperature 98.2, heart rate 82 blood pressure 125/78, O2 sats 98% on room air. CBC with a WBC of 11.2, hemoglobin 10.3 with hematocrit of 31.2, this is patient's baseline. CMP with potassium of 3.1, patient was given oral potassium replacement. CT of the abdomen and pelvis was noted for large stool ball noted at the rectum with diffuse wall thickening. Correlate for stercoral colitis. Mild pancreatic ductal dilatation down to level the ampulla with mild intrahepatic or ductal dilatation. A discrete obstructing lesion is not identi fied. Correlate with LFTs to determine the need for further evaluation with MRCP/ERCP.-LFTS are normal On rectal exam patient has a ball of stool on the lower rectum region, try to disimpact her but she did not tolerate even a single removal of the stool. Spoke with Dr. Villalobos, patient was given morphine and lidocaine gel applied in her rectal region. I was able to disimpact patient, she also went to the bathroom and had a large bowel movement. She is feeling better. Discharged back to [facility] living Antelmo Disclaimer: Antelmo Disclaimer: This electronic medical record was generated, in whole or in part, using a voice recognition dictation system. Departure Departure Impression: Primary Impression: Fecal impaction in rectum Additional Impressions: Constipation Qualified Codes: K59.00 - Constipation, unspecified Hypokalemia Disposition: HOME / SELF CARE / HOMELESS Condition: STABLE Referrals: JONATHAN ENG MD (PCP) Follow-up in 1 week Patient Instructions: Constipation, Adult, Fecal Impaction Additional Instructions: You were evaluated in the emergency room and noted to have a large amount of stool in your rectum. We were able to dis-impact you. We encourage you to increase your dietary fiber intake, increase your water intake, avoid taking narcotic pain medicines because they increase your risk of constipation. Take MiraLAX every day. You can also take a stool softener. Anytime you are constipated consider magnesium citrate or milk of magnesia. You can also perform an enema Scripts Ondansetron (ONDANSETRON ODT) 4 Mg Tab.rapdis 1 TAB PO PRN Q6-8HRS, #16 TAB Prov: MARTINA BHATT APRN 06/13/21 Polyethylene Glycol 3350 (MIRALAX) 119 Gm Powder 17 GM PO DAILY for constipation, #255 GM 0 Refills dissolve in water Prov: MARTINA BHATT APRN 06/13/21 MARTINA BHATT APRN Jun 12, 2021 20:51
[2021-06-12 21:33] LABS: BASO # 0.1 x10^3/uL (0.0-0.2); BASO % 1 % (0-3); EOS # 0.3 x10^3/uL (0.0-0.7); EOS % 3 % (0-3); HEMATOCRIT 31.2 % (36.0-47.0); HEMOGLOBIN 10.3 g/dL (12.0-15.5); LYMPH # 1.4 x10^3/uL (1.0-4.8); LYMPH % 12 % (24-48); MEAN CORPUSCULAR HEMOGLOBIN 31 pg (25-35); MEAN CORPUSCULAR HGB CONC 33 g/dL (31-37); MEAN CORPUSCULAR VOLUME 92 fL (79-100); MONO # 0.9 x10^3/uL (0.0-1.1); MONO % 8 % (0-9); NEUT % 77 % (31-73); PLATELET COUNT 308 x10^3/uL (140-400); RED BLOOD COUNT 3.39 x10^6/uL (3.50-5.40); RED CELL DISTRIBUTION WIDTH 13.1 % (11.5-14.5); WHITE BLOOD COUNT 11.7 x10^3/uL (4.0-11.0)
[2021-06-12 21:42] LABS: CALCIUM 9.1 mg/dL (8.5-10.1); GFR 54.1; POTASSIUM 3.1 mmol/L (3.5-5.1)
[2021-06-12 21:47] LABS: ALBUMIN 3.4 g/dL (3.4-5.0); ALBUMIN/GLOBULIN RATIO 0.9 (1.0-1.7); TOTAL BILIRUBIN 0.3 mg/dL (0.2-1.0)
[2021-06-12 22:04] LABS: PROTHROMBIN TIME PATIENT 13.1 SEC (11.7-14.0)
[2021-06-12] MEDS ORDERED: IOHEXOL 300 MG/ML 100ML VIAL. IV ONE (22:15)
[2021-06-12] MEDS ORDERED: CONTRAST GIVEN. MC PRN (22:15)
--- NOTE | 2021-06-12 22:49 | RAD ---
Exam: CT of abdomen and pelvis with contrast INDICATION: Diarrhea TECHNIQUE: Sequential axial images through the abdomen and pelvis obtained following the administrati on of 60 mL of Isovue-370 IV contrast. Sagittal and coronal reformatted images were reconstructed fro m the axial data and reviewed. Exposure: One or more of the following in the visualized dose reduction techniques were utilized for this examination: 1. Automated exposure control 2. Adjustment of the MA and/or KV according to patient size 3. Use of iterative of reconstructive technique Comparisons: None FINDINGS: Heart size is normal. No pericardial effusion. Visualized lung bases are clear. No pleural effusion. Numerous cysts noted within the liver. Spleen, and adrenals are unremarkable. There is mild pancreatic ductal dilatation down to level the ampulla. Gallbladder is mildly distended . No perinephric inflammation or hydronephrosis. No renal or ureteral calculi are identified. Bladder is partially distended and not well evaluated. Uterus is not enlarged. No abnormal adnexal ma ss. Moderate amount stool noted in the colon. Large amount stool noted at the rectum. Appendix is noniden tified. No free intra-abdominal air or fluid. No obstruction. Abdominal aorta has normal course and caliber. Abdominal vasculature is patent. No enlarged intra-abdominal lymph nodes are identified. No suspicious osseous lesions or acute fractures. IMPRESSION: 1. Large stool ball noted at the rectum with diffuse wall thickening. Correlate for stercoral coliti s. 2. Mild pancreatic ductal dilatation down to level the ampulla with mild intrahepatic or ductal dila tation. A discrete obstructing lesion is not identified. Correlate with LFTs to determine the need fo r further evaluation with MRCP/ERCP. Electronically signed by: Emily Arora MD (06/12/2021 10:47 PM) [facility]
[2021-06-12 23:18] LABS: FECAL OB PT NEGATIVE (NEG)
[2021-06-12] MEDS ORDERED: POTASSIUM BICARB 20 MEQ EFFERVESCENT TABLET. PO ONE (23:30)
[2021-06-13] MEDS ORDERED: MORPHINE SULFATE 4 MG/ML INJ. IVP ONE
[2021-06-13] MEDS ORDERED: LIDOCAINE 2% JELLY 6ML IN APPLICATOR. MM ONE
[2021-06-13] MEDS ORDERED: POTASSIUM CHLORIDE 20 MEQ TABLET.ER. PO ONE (00:15)
[2021-06-13 00:16] VITALS: BP 145/106
[2021-06-13] MEDS ORDERED: POLY119P4 PO (00:49)
[2021-06-13] MEDS ORDERED: ONDA4TAB12 PO (00:49)
[2021-06-13] MEDS ORDERED: IOHEXOL 300 MG/ML 100ML VIAL. ONE (02:17)
== END 2021-06-13 01:10 | disposition home or self-care (01) ==
LOC: ER 20:30
DX: K56.41 Fecal impaction (principal); E87.6 Hypokalemia; E78.00 Pure hypercholesterolemia, unspecified; K21.9 Gastro-esophageal reflux disease without esophagitis; E03.9 Hypothyroidism, unspecified; G43.909 Migraine, unspecified, not intractable, without status migrainosus; Z87.891 Personal history of nicotine dependence; Z88.5 Allergy status to narcotic agent; Z88.6 Allergy status to analgesic agent
CPT/HCPCS: 36415; 74177; 80053; 82274; 83690; 85025; 85610; 85730; 96361; 96374; 96375; 99285; J2270; J3490; J7030; Q9967

== ENCOUNTER → 2021-07-06 | Outpatient (CLI) | payer MEDICARE, BC ==
[2021-06-13 00:16] VITALS: BP 145/106
[~2021-07-06] MED LIST changes: +ONDA4TAB12 PO; +POLY119P4 PO
--- NOTE | 2021-07-06 12:55 | PDOC ---
Progress Note - Pain Clinic Date of Service: DOS: DATE: 07/06/21 TIME: 12:44 Diagnosis: Dx: Lumbar radiculopathy with lumbar degenerative disease and lumbar spinal stenosis Left shoulder joint pain with osteoarthritis Left knee joint pain with osteoarthritis History or Present Illness: HPI: 76-year-old female returns for follow-up status post medication management with hydrocodone 7.5 mg. Patient reports doing very well with about a 70 to 80% improvement with the medication without any side effects. Patient reports still some pain in the low back and radiating into the left lower extremity on occasion but very manageable with the current medication regimen patient reports her pain is 8 on scale 10 is worse over the past week 8 on average 4 to [place] is a 4 today patient reports is better with sitting or laying down generally does not awaken from sleep at night but can on some nights patient reports no loss of motor function but some fatigability of the left lower extremity with extended walking or standing more than 10 to 15 minutes patient reports the pain is burning and aching shooting stabbing can be tight alternating with sharp and dull sensation in the low back but again mostly manageable and patient is aware of activities to avoid to exacerbate the pain as well. Patient reports no bowel bladder incontinence no motor deficits. Patient has lost about 7 pounds in weight we discussed this and she reports that she is still maintaining appetite and eating regularly at least 3 times a day although she does have some boost shakes she is going to start taking daily as well. Physical Exam: VS: Blood pressure is 134/65 pulse 79 respirations 20 temperature 98.9 F, weight is 93.6 pounds PE: PHYSICAL EXAMINATION: GENERAL: The patient is awake, alert, oriented, appropriate, very pleasant in demeanor HEENT: Shows normocephalic, atraumatic. Extraocular movements are intact and symmetrical. Oral cavity: Mucous membranes moist and pink. Dentition is intact. NECK: Shows anterior throat supple without palpable lymphadenopathy noted. Swallow reflex symmetrical. CHEST: Shows normal on inspection. Breath sounds are clear bilaterally, distant but no rales or rhonchi auscultated. HEART: Shows S1, S2 clear. No murmurs auscultated. ABDOMEN: Soft, nontender, nondistended. No palpable organomegaly is noted. BACK: Shows spine grossly in the midline. Normal-appearing cervical lordotic curvature. There is slightly increased thoracic kyphosis, some minor flattening of the lumbar lordotic curvature. Lumbar paraspinous muscles show symmetrical on inspection, on palpation shows some moderate tenderness diffusely throughout the upper, middle and lower distribution of the paraspinous muscles, but without specific trigger points, without radiation of pain. The patient has good rotational motion of the lumbar spine, both laterally as well as extension and flexion without significant difficulty. EXTREMITIES: Lower extremities show deep tendon reflexes 1+ in the patellar and tendo calcaneus tendons. Motor exam is 4 on a scale of 5 with right dorsiflexion, extension, quadriceps and hamstring flexion and 4/5 on the left. Peripheral pulses are 1+ posterior tibial. No peripheral edema is noted bilaterally. Lower extremities are warm and dry. SKIN: Shows warm and dry, good turgor. No edema. No sores, rashes or bruising throughout. Procedure: Procedure: Options were discussed with the patient. Patient chart was reviewed as her current medication regimen updated current review of systems updated today as well. Patient has had appropriate K tracks portables appropriate urinalyses to date and we will refill patient's medication for 30-day prescription. Patient was given instructions well side effects aware of with the hydrocodone and will follow up in approximate 30 days as scheduled. Medication Injected: Med Injected: None Condition at Discharge: Condition at Discharge: Condition at discharge is stable. ISA PETTIT MD Jul 06, 2021 12:55
== END | disposition home or self-care (01) ==
LOC: PNCL 11:32
PROVIDERS: ATTEND Anesthesiology
DX: M51.16 Intervertebral disc disorders with radiculopathy, lumbar region (principal); M48.061 Spinal stenosis, lumbar region without neurogenic claudication; M19.012 Primary osteoarthritis, left shoulder; M17.12 Unilateral primary osteoarthritis, left knee; I10 Essential (primary) hypertension; E78.00 Pure hypercholesterolemia, unspecified; E03.9 Hypothyroidism, unspecified; K21.9 Gastro-esophageal reflux disease without esophagitis; F32.9 Major depressive disorder, single episode, unspecified; Z87.891 Personal history of nicotine dependence; Z79.899 Other long term (current) drug therapy; Z98.890 Other specified postprocedural states; Z88.8 Allergy status to other drugs, medicaments and biological substances
CPT/HCPCS: 99212; G0463

== ENCOUNTER → 2021-08-04 | Outpatient (CLI) | payer MEDICARE, BC ==
--- NOTE | 2021-08-04 16:40 | NUR ---
Telehealth Visit: Pt called for routine telehealth visit to refill medications. Confirmed and refill for hydrocodone 7.5/325mg. Pt c/o 10/02 pain and states that she was "up all night." Denies any new issues with pain. Confirmed preferred pharmacy in [facility]. Next appointment scheduled for 09/08/21. Denies new allergies. Transferred to Dr. Sotelo for further evaluation.
--- NOTE | 2021-08-04 16:47 | PDOC ---
Progress Note - Pain Clinic Date of Service: DOS: DATE: 08/04/21 TIME: 16:45 Diagnosis: Dx: Radiculopathy with lumbar degenerative disease lumbar spinal stenosis Left shoulder joint pain with osteoarthritis Left knee joint pain with osteoarthritis History or Present Illness: HPI: Telemedicine visit today with patient today with identity verified with full name as well as full date of , total time spent 12 minutes, telephone voice only. 76-year-old female via telemedicine visit requesting refill of hydrocodone 7.5 mg patient reports she is been doing much better she is been increasing her activity recently and she reports he is taking more of the medicines than she would normally but still is not needing any increase in monthly amount of the medication patient reports her pain level is about a 7 on a scale of 10 at its worst but most days is more via 2 or 3 and well controlled with the medication without any significant side effects. Patient reports no constipation no dysphoria euphoria no itching nausea headaches or other complaints. Patient has had appropriate K tracks report as well as appropriate urinalyses to date as well. We discussed options and will refill patient's medication via electronic prescription for hydrocodone 7.5 mg thresh 325. Patient given 75 tablets and was given instructions well side effects aware with the medications once again. Patient will follow up in approximate 30 days as scheduled. Physical Exam: PE: ISA PETTIT MD August 04, 2021 16:47
== END | disposition home or self-care (01) ==
LOC: PNCL 14:31
PROVIDERS: ATTEND Anesthesiology
DX: M51.16 Intervertebral disc disorders with radiculopathy, lumbar region (principal); M48.061 Spinal stenosis, lumbar region without neurogenic claudication; M19.012 Primary osteoarthritis, left shoulder; M17.11 Unilateral primary osteoarthritis, right knee; I10 Essential (primary) hypertension; E78.00 Pure hypercholesterolemia, unspecified; K21.9 Gastro-esophageal reflux disease without esophagitis; E03.9 Hypothyroidism, unspecified; F32.9 Major depressive disorder, single episode, unspecified; Z79.899 Other long term (current) drug therapy; Z98.890 Other specified postprocedural states
CPT/HCPCS: 99212; G0463